=== PATIENT | female | born 1955 | race Caucasian/White ===

== ENCOUNTER → 2016-07-28 | Outpatient (CLI) | payer MEDICARE, BC, OTHER ==
[~2016-07-28] MED LIST: /MOXI40TA OR; ALBUTEROL INH INH; ALBUTEROL NEBULIZER INH; AMOX500C PO; ATOR1TAB21 PO; BIMA01SOL OU; CIPR25SS PO; LASI40TA OR; LISI-538 PO; METF1000 PO; MUCINEX PO; MYCOSTATIN SS; POTA75TA PO; PUFFER; SOLUMEDROL IV; SPIRIVA INH; TUSSINEX PO; TYLE1TAB5 PO; [UNRECOGNIZED DRUG - OTHER]; [UNRECOGNIZED DRUG - OTHER] PO
--- NOTE | 2016-07-28 08:00 | REP ---
Clinical: Preoperative assessment . Comparison: 02/20/2016 . Technique: PA and lateral. Findings: The mediastinum and cardiac silhouette are normal. The lung bynum are clear and without acute consolidation, effusion, or pneumothorax. The skeletal structures are intact and normal. Impression: 1. No acute cardiopulmonary process. Signed by Cosmo Dudley MD 07/28/2016 07:52 A
[2016-07-28 08:01] LABS: INR 0.82
[2016-07-28 08:09] LABS: MEAN CORPUSCULAR HEMOGLOBIN 29.6 pg (27.0-33.0); MEAN CORPUSCULAR VOLUME 89.7 fl (80.0-96.0); RED CELL DISTRIBUTION WIDTH 14.1 % (11.5-14.5)
[2016-07-28 08:30] LABS: ALBUMIN 3.6 GM/DL (3.2-5.2); ALBUMIN/GLOBULIN RATIO 1.24 (1.00-1.93); ALKALINE PHOSPHATASE 100 U/L (45-117); ALT/SGPT 38 U/L (12-78); ANION GAP 9 MEQ/L (8-16); AST/SGOT 17 U/L (15-37); BILIRUBIN,TOTAL 0.4 MG/DL (0.2-1.0); BLOOD UREA NITROGEN 13 MG/DL (7-18); CALCIUM LEVEL 8.5 MG/DL (8.8-10.2); CARBON DIOXIDE LEVEL 27 MEQ/L (21-32); CHLORIDE LEVEL 105 MEQ/L (98-107); CHOLESTEROL LEVEL 188 MG/DL (<200); CREATININE FOR GFR 0.76 MG/DL (0.55-1.02); GLOMERULAR FILTRATION RATE > 60.0 (>45); GLUCOSE, FASTING 191 MG/DL (80-110); POTASSIUM SERUM 4.4 MEQ/L (3.5-5.1); SODIUM LEVEL 141 MEQ/L (136-145); TOTAL PROTEIN 6.5 GM/DL (6.4-8.2); TRIGLYCERIDES LEVEL 310 MG/DL (<150)
--- NOTE | 2016-07-28 17:55 | ECGEPIP ---
Stationary ECG Study [facility] Test Date: 2016-07-28 Pat Name: JOSHUA BLANCAS Department: Room: - Gender: F Supervisor Print Line: LANG : 1955 Requested By: Madiha Yen Order Number: [id number] Reading MD: Romel Pathak Measurements Intervals [place] Rate: 83 P: 60 VT: 127 QRS: 25 QRSD: 85 T: 70 QT: 360 QTc: 424 Interpretive Statements SINUS RHYTHM LOW QRS VOLTAGE IN PRECORDIAL LEADS DELAYED R-WAVE PROGRESSION IN THE RIGHT PRECORDIAL LEADS LAST kg ON 02/20/2016 AT 8:07:04. NO SIGNIFICANT CHANGES BUT FASTER HEART RATE Electronically Signed On 07-28-2016 17:54:50 EDT by Romel Pathak
== END ==
LOC: M LAB 07:16
PROVIDERS: ATTEND Family Medicine
DX: Z01.812 Encounter for preprocedural laboratory examination (principal); I10 Essential (primary) hypertension

== ENCOUNTER → 2016-08-20 | Day surgery (SDC) | payer MEDICARE, BC, OTHER ==
[~2016-08-20] VITALS: Ht 149.9 cm; Wt 90.7 kg
[~2016-08-20] MED LIST changes: +BUPIVACAINE HCL 0.5% 30 ML VIAL As Ordered ONE; +GLYCOPYRROLATE INJ 0.2 MG/ML 2 ML VIAL As Ordered ONE; +HYDROcodone/APAP LIQUID 7.5-325MG 15ML UDC (LORTAB ELIXIR) PO PRN; +HYDROmorphone HCL 1 MG/ML SYRINGE (J1170) IV PRN; +HumaLOG INSULIN (NovoLOG) PER UNIT SC ONE; +IBUPROFEN 800 MG TAB PO PRN; +LR 1,000 ML IV SCH; +MEPERIDINE INJ 25 MG/ML VIAL (J2175) IV PRN; +METOCLOPRAMIDE INJ 10MG/2ML VIAL (J2765) IV PRN; +MIDAZOLAM INJ 2 MG/2 ML VIAL (J2250) As Ordered ONE; +MIDAZOLAM INJ 2 MG/2 ML VIAL (J2250) IV PRN; +NEOSTIGMINE 1MG/ML 5 ML SYRINGE (J2710) As Ordered ONE; +ONDANSETRON 4MG/2ML VIAL (J2405) As Ordered ONE; +ONDANSETRON 4MG/2ML VIAL (J2405) IV PRN; +PERCOCET 5MG/325MG TAB PO PRN; +PHENYLephrine HCL 500 MCG/5 ML (100MCG/ML) SYRINGE (J2370) As Ordered ONE; +PROPOFOL 500 MG/50 ML VIAL As Ordered ONE; +ROCURONIUM BROMIDE 50 MG/5 ML VIAL As Ordered ONE; +dexameTHASONE 4 MG/ML 1ML VIAL (J1100) As Ordered ONE; +ePHEDrine SULFATE 25 MG/5 ML(5MG/ML) SYRINGE As Ordered ONE; +fentaNYL 100 MCG/2 ML INJECTION (J3010) As Ordered ONE; +fentaNYL 100 MCG/2 ML INJECTION (J3010) IV PRN
[2016-08-20 14:20] VITALS: BP 142/63
--- NOTE | 2016-09-17 17:31 | RO ---
DATE OF PROCEDURE: 08/20/2016 PREOPERATIVE DIAGNOSIS: Asymmetric tonsillar hypertrophy. POSTOPERATIVE DIAGNOSIS: Asymmetric tonsillar hypertrophy. OPERATIVE PROCEDURE: Right tonsillectomy. SURGEON: Dr. Ronald Puentes ORCHARD HAND: ANESTHESIA: INDICATION: This is a 61-year-old that presents with a history of unilateral tonsillar enlargement associated with some chronic pain. She had been followed for several months and continued to have extensive fullness in the right side of her throat associated with an asymmetrically enlarged tonsil bed. Elected to establish a tissue diagnosis with biopsy and excision of the entire tonsil. PROCEDURE: Satisfactory general endotracheal anesthesia administered, the patient placed in Trendelenburg position. A Chiquita-Everardo gag inserted. the right tonsil was grasped with Allis clamp and retracted out of its muscular fossa. Using cutting cautery, incision made on the anterior pillar 3 mm from its edge and the capsule of the tonsil identified. Using a combination of cautery and blunt dissection, the tonsil was rolled medially out of its muscular fossa preserving the posterior pillar in its entirety. Once the tonsil was suspended only at the inferior pole, coagulation current was used to amputate the tissue. No significant bleeding was encountered in this dissection. The gag was released at 3 minutes. Reinspection showed no active bleeding. 0.50% Marcaine was injected into the surgical site. The patient was then awakened, extubated and sent to recovery in satisfactory condition. She will be discharged home on Percocet for pain and be seen back in the office in one week.
== END | disposition home or self-care (01) ==
LOC: M SDC 09:35
PROVIDERS: ATTEND Specialist
DX: J35.1 Hypertrophy of tonsils (principal); I10 Essential (primary) hypertension; E78.00 Pure hypercholesterolemia, unspecified; E11.9 Type 2 diabetes mellitus without complications; K64.9 Unspecified hemorrhoids; L40.9 Psoriasis, unspecified; J44.9 Chronic obstructive pulmonary disease, unspecified; R06.83 Snoring; G47.00 Insomnia, unspecified; Z79.899 Other long term (current) drug therapy; Z90.710 Acquired absence of both cervix and uterus; Z72.0 Tobacco use
CPT/HCPCS: 42826; 88305; 88329; J1100; J1170; J2250; J2370; J2405; J2710; J3010

== ENCOUNTER → 2017-03-26 | Outpatient (CLI) | payer MEDICARE, BC, OTHER ==
[~2017-03-26] MED LIST changes: -BUPIVACAINE HCL 0.5% 30 ML VIAL As Ordered ONE; -GLYCOPYRROLATE INJ 0.2 MG/ML 2 ML VIAL As Ordered ONE; -HYDROcodone/APAP LIQUID 7.5-325MG 15ML UDC (LORTAB ELIXIR) PO PRN; -HYDROmorphone HCL 1 MG/ML SYRINGE (J1170) IV PRN; -HumaLOG INSULIN (NovoLOG) PER UNIT SC ONE; -IBUPROFEN 800 MG TAB PO PRN; -LR 1,000 ML IV SCH; -MEPERIDINE INJ 25 MG/ML VIAL (J2175) IV PRN; -METF1000 PO; +METF10004 PO; -METOCLOPRAMIDE INJ 10MG/2ML VIAL (J2765) IV PRN; -MIDAZOLAM INJ 2 MG/2 ML VIAL (J2250) As Ordered ONE; -MIDAZOLAM INJ 2 MG/2 ML VIAL (J2250) IV PRN; -NEOSTIGMINE 1MG/ML 5 ML SYRINGE (J2710) As Ordered ONE; -ONDANSETRON 4MG/2ML VIAL (J2405) As Ordered ONE; -ONDANSETRON 4MG/2ML VIAL (J2405) IV PRN; -PERCOCET 5MG/325MG TAB PO PRN; -PHENYLephrine HCL 500 MCG/5 ML (100MCG/ML) SYRINGE (J2370) As Ordered ONE; -PROPOFOL 500 MG/50 ML VIAL As Ordered ONE; -ROCURONIUM BROMIDE 50 MG/5 ML VIAL As Ordered ONE; -dexameTHASONE 4 MG/ML 1ML VIAL (J1100) As Ordered ONE; -ePHEDrine SULFATE 25 MG/5 ML(5MG/ML) SYRINGE As Ordered ONE; -fentaNYL 100 MCG/2 ML INJECTION (J3010) As Ordered ONE; -fentaNYL 100 MCG/2 ML INJECTION (J3010) IV PRN
[2017-03-26 07:43] LABS: MEAN CORPUSCULAR HEMOGLOBIN 27.1 pg (27.0-33.0); MEAN CORPUSCULAR HGB CONC 31.7 g/dl (32.0-36.5); MEAN CORPUSCULAR VOLUME 85.5 fl (80.0-96.0); PLATELET COUNT, AUTOMATED 347 10^3/uL (150-450); WHITE BLOOD COUNT 9.8 10^3/uL (4.0-10.0)
[2017-03-26 08:09] LABS: ALBUMIN 3.1 GM/DL (3.2-5.2); ALBUMIN/GLOBULIN RATIO 0.91 (1.00-1.93); ALKALINE PHOSPHATASE 96 U/L (45-117); ALT/SGPT 20 U/L (12-78); ANION GAP 10 MEQ/L (8-16); AST/SGOT 14 U/L (7-37); BILIRUBIN,TOTAL 0.4 MG/DL (0.2-1.0); BLOOD UREA NITROGEN 12 MG/DL (7-18); CALCIUM LEVEL 9.2 MG/DL (8.8-10.2); CARBON DIOXIDE LEVEL 25 MEQ/L (21-32); CHLORIDE LEVEL 103 MEQ/L (98-107); CHOLESTEROL LEVEL 183 MG/DL (<200); CREATININE FOR GFR 0.82 MG/DL (0.55-1.02); GLOMERULAR FILTRATION RATE > 60.0 (>45); GLUCOSE, FASTING 233 MG/DL (80-110); PERCENT SATURATION 14.1 % (13.2-45.0); POTASSIUM SERUM 4.5 MEQ/L (3.5-5.1); SODIUM LEVEL 138 MEQ/L (136-145); THYROXINE (T4) 9.2 UG/DL (4.5-12.0); TOTAL IRON BINDING CAPACITY 270 UG/DL (250-450); TOTAL PROTEIN 6.5 GM/DL (6.4-8.2); TRIGLYCERIDES LEVEL 183 MG/DL (<150)
[2017-03-26 10:28] LABS: VITAMIN B12 LEVEL 344 PG/ML (247-911)
== END ==
LOC: M LAB 06:46
PROVIDERS: ATTEND Family Medicine
DX: D64.9 Anemia, unspecified (principal); R53.83 Other fatigue; E11.9 Type 2 diabetes mellitus without complications; E03.9 Hypothyroidism, unspecified

== ENCOUNTER → 2018-01-21 | Outpatient (REF) | payer MEDICARE, OTHER ==
[2018-01-21 15:18] LABS: IMMUNOGLOBULIN G 732 MG/DL (681-1648); IMMUNOGLOBULIN M 32.6 MG/DL (40-230)
[2018-01-24 08:45] LABS: D001-IgE D pteronyssinus <0.10 kU/L (Class 0); E001-IgE Cat Epith/Dander < 0.10 kU/L (Class 0); E005-IgE Dog Dander 0.67 kU/L (Class II); G002-IgE Bermuda Grass < 0.10 kU/L (Class 0); G008-IgE Kentucky Bluegrass < 0.10 kU/L (Class 0); M001-IgE Penicillium chrysogen < 0.10 kU/L (Class 0); M002 IgE Cladosporium herbaru < 0.10 kU/L (Class 0); M003 IgE Aspergillus fumigatu < 0.10 kU/L (Class 0); M006-IgE Alternaria alternata < 0.10 kU/L (Class 0); T001-IgE Maple/Box Elder < 0.10 kU/L (Class 0); T003-IgE Common Silver Birch < 0.10 kU/L (Class 0); T006-IgE Cedar, Mountain < 0.10 kU/L (Class 0); T007-IgE Oak, White < 0.10 kU/L (Class 0); T008-IgE Elm, American < 0.10 kU/L (Class 0); T015-IgE Ash, White < 0.10 kU/L (Class 0); T041-IgE Hickory, White < 0.10 kU/L (Class 0); T070-IgE White Mulberry < 0.10 kU/L (Class 0); W001-IgE Ragweed, Short < 0.10 kU/L (Class 0); W009-IgE Plantain, English < 0.10 kU/L (Class 0); W014-IgE Pigweed, Rough < 0.10 kU/L (Class 0); W018-IgE Sheep Sorrel < 0.10 kU/L (Class 0)
== END ==
LOC: M LAB REF 14:13
DX: J44.9 Chronic obstructive pulmonary disease, unspecified (principal); J30.9 Allergic rhinitis, unspecified
CPT/HCPCS: 82785

== ENCOUNTER → 2018-01-22 | Outpatient (REF) | payer MEDICARE, OTHER | LOC: M LAB REF 13:09 | DX: J44.9 Chronic obstructive pulmonary disease, unspecified (principal) | CPT/HCPCS: 87205 ==

== ENCOUNTER → 2018-06-29 | Outpatient (CLI) | payer MEDICARE, OTHER ==
[2018-06-29 07:47] LABS: HEMATOCRIT 37.8 % (36.0-47.0); HEMOGLOBIN 11.8 g/dl (12.0-15.5); MEAN CORPUSCULAR HEMOGLOBIN 28.2 pg (27.0-33.0); MEAN CORPUSCULAR HGB CONC 31.2 g/dl (32.0-36.5); MEAN CORPUSCULAR VOLUME 90.2 fl (80.0-96.0); PLATELET COUNT, AUTOMATED 319 10^3/uL (150-450); RED BLOOD COUNT 4.19 10^6/uL (4.00-5.40); WHITE BLOOD COUNT 9.6 10^3/uL (4.0-10.0)
[2018-06-29 08:10] LABS: ALBUMIN 3.6 GM/DL (3.2-5.2); ALT/SGPT 19 U/L (12-78); BILIRUBIN,TOTAL 0.3 MG/DL (0.2-1.0); BLOOD UREA NITROGEN 10 MG/DL (7-18); CALCIUM LEVEL 9.4 MG/DL (8.8-10.2); CARBON DIOXIDE LEVEL 28 MEQ/L (21-32); CHLORIDE LEVEL 105 MEQ/L (98-107); CHOLESTEROL LEVEL 213 MG/DL (<200); CREATININE FOR GFR 0.72 MG/DL (0.55-1.30); GLOMERULAR FILTRATION RATE > 60.0 (>45); GLUCOSE, FASTING 132 MG/DL (70-100); HDL CHOLESTEROL 59 MG/DL (>40); LDL CHOLESTEROL 120 MG/DL (<100); NON-HDL-C 154 MG/DL; POTASSIUM SERUM 4.8 MEQ/L (3.5-5.1); SODIUM LEVEL 139 MEQ/L (136-145); TOTAL PROTEIN 6.6 GM/DL (6.4-8.2); TRIGLYCERIDES LEVEL 171 MG/DL (<150)
[2018-06-29 09:19] LABS: TOTAL 25(OH) VITAMIN D 34.4 NG/ML (30.0-100.0)
== END ==
LOC: M LAB 06:52
PROVIDERS: ATTEND Family Medicine
DX: I10 Essential (primary) hypertension (principal); E11.9 Type 2 diabetes mellitus without complications

== ENCOUNTER → 2018-11-30 | Outpatient (CLI) | payer MEDICARE, BC, OTHER ==
[~2018-11-30] MED LIST changes: -/MOXI40TA OR; +AVEL1TAB2 OR
[2018-11-30 07:23] LABS: HEMOGLOBIN A1c 7.4 %
== END ==
LOC: M LAB 06:09
PROVIDERS: ATTEND Family Medicine
DX: E11.9 Type 2 diabetes mellitus without complications (principal)

== ENCOUNTER → 2019-06-16 | Outpatient (CLI) | payer MEDICARE, BC, OTHER ==
[2019-06-16 06:45] LABS: HEMATOCRIT 40.2 % (36.0-47.0); HEMOGLOBIN 12.2 g/dl (12.0-15.5); MEAN CORPUSCULAR HEMOGLOBIN 27.5 pg (27.0-33.0); MEAN CORPUSCULAR HGB CONC 30.3 g/dl (32.0-36.5); MEAN CORPUSCULAR VOLUME 90.5 fl (80.0-96.0); PLATELET COUNT, AUTOMATED 302 10^3/uL (150-450); RED BLOOD COUNT 4.44 10^6/uL (4.00-5.40)
[2019-06-16 07:09] LABS: HEMOGLOBIN A1c 8.5 %
[2019-06-16 07:25] LABS: ALBUMIN 3.6 GM/DL (3.2-5.2); ALT/SGPT 24 U/L (12-78); BILIRUBIN,TOTAL 0.3 MG/DL (0.2-1.0); BLOOD UREA NITROGEN 15 MG/DL (7-18); CALCIUM LEVEL 9.3 MG/DL (8.8-10.2); CARBON DIOXIDE LEVEL 25 MEQ/L (21-32); CHLORIDE LEVEL 107 MEQ/L (98-107); CHOLESTEROL LEVEL 214 MG/DL (<200); CHOLESTEROL RISK RATIO 3.451 (<5); CREATININE FOR GFR 0.85 MG/DL (0.55-1.30); GLOMERULAR FILTRATION RATE > 60.0 (>45); GLUCOSE, FASTING 193 MG/DL (70-100); HDL CHOLESTEROL 62 MG/DL (>40); LDL CHOLESTEROL 103 MG/DL (<100); NON-HDL-C 152 MG/DL; POTASSIUM SERUM 4.9 MEQ/L (3.5-5.1); SODIUM LEVEL 140 MEQ/L (136-145); TOTAL PROTEIN 6.7 GM/DL (6.4-8.2); TRIGLYCERIDES LEVEL 244 MG/DL (<150)
[2019-06-16 08:06] LABS: TOTAL 25(OH) VITAMIN D 35.2 NG/ML (30.0-100.0)
== END ==
LOC: M LAB 06:04
PROVIDERS: ATTEND Family Medicine
DX: I10 Essential (primary) hypertension (principal); E11.9 Type 2 diabetes mellitus without complications; Z79.899 Other long term (current) drug therapy

== ENCOUNTER → 2019-11-18 | Outpatient (CLI) | payer MEDICARE, BC, OTHER ==
[~2019-11-18] MED LIST changes: +ACET25TA12 PO; +FURO40TA2 PO; +JANU50TA25 PO; +K-TA10TA PO
[2019-11-18 07:28] LABS: HEMOGLOBIN 12.3 g/dl (12.0-15.5); MEAN CORPUSCULAR HEMOGLOBIN 26.9 pg (27.0-33.0); MEAN CORPUSCULAR HGB CONC 30.8 g/dl (32.0-36.5); MEAN CORPUSCULAR VOLUME 87.3 fl (80.0-96.0); PLATELET COUNT, AUTOMATED 311 10^3/uL (150-450); RED BLOOD COUNT 4.58 10^6/uL (4.00-5.40); WHITE BLOOD COUNT 10.6 10^3/uL (4.0-10.0)
[2019-11-18 07:37] LABS: INR 0.89; PROTHROMBIN TIME 11.8 SECONDS (11.8-14.0)
[2019-11-18 07:41] LABS: HEMOGLOBIN A1c 8.6 %
[2019-11-18 08:01] LABS: ALBUMIN 3.7 GM/DL (3.2-5.2); ALT/SGPT 20 U/L (12-78); BILIRUBIN,TOTAL 0.4 MG/DL (0.2-1.0); BLOOD UREA NITROGEN 11 MG/DL (7-18); CARBON DIOXIDE LEVEL 24 MEQ/L (21-32); CHLORIDE LEVEL 107 MEQ/L (98-107); CHOLESTEROL LEVEL 241 MG/DL (<200); CHOLESTEROL RISK RATIO 4.228 (<5); CREATININE FOR GFR 0.87 MG/DL (0.55-1.30); GLOMERULAR FILTRATION RATE > 60.0 (>45); GLUCOSE, FASTING 191 MG/DL (70-100); HDL CHOLESTEROL 57 MG/DL (>40); LDL CHOLESTEROL 131 MG/DL (<100); NON-HDL-C 184 MG/DL; POTASSIUM SERUM 4.5 MEQ/L (3.5-5.1); SODIUM LEVEL 140 MEQ/L (136-145); TOTAL PROTEIN 7.1 GM/DL (6.4-8.2); TRIGLYCERIDES LEVEL 266 MG/DL (<150)
[2019-11-18 08:50] LABS: TOTAL 25(OH) VITAMIN D 38.4 NG/ML (30.0-100.0)
== END ==
LOC: M LAB 06:15
PROVIDERS: ATTEND Family Medicine
DX: I10 Essential (primary) hypertension (principal); Z79.01 Long term (current) use of anticoagulants

== ENCOUNTER → 2019-11-21 | Outpatient (CLI) | payer MEDICARE, BC, OTHER | LOC: M LABSMTC 10:36 | PROVIDERS: ATTEND Anesthesiology | DX: Z01.818 Encounter for other preprocedural examination (principal); Z11.59 Encounter for screening for other viral diseases | CPT/HCPCS: C9803; U0003 ==

== ENCOUNTER 2019-11-24 06:18 | Day surgery (SDC) | payer MEDICARE, BC, OTHER ==
[~2019-11-24] VITALS: Ht 149.9 cm; Wt 91.2 kg
[2019-11-24] MEDS ORDERED: POVIDONE-IODINE 5% OPHTH PREP SOL 30ML As Ordered ONE (06:49)
[2019-11-24] MEDS ORDERED: CEFUROXIME 1MG/0.1ML INTRACAMERAL INJ As Ordered ONE (06:49)
[2019-11-24] MEDS ORDERED: BSS IRR 500ML/OMIDRIA 4ML IRR BAG (OR ONLY) (J1097 PER ML) As Ordered ONE (06:49)
[2019-11-24] MEDS ORDERED: DUOVISC (0.50ML VISCOAT/0.55ML PROVISC) OPHTH KIT As Ordered ONE (06:49)
[2019-11-24] MEDS ORDERED: OFLOXACIN 0.3 % (OCUFLOX) OPTH SOL 5ML OD ONE (07:00)
[2019-11-24] MEDS ORDERED: PROPARACAINE 0.5% OPHTH SOL 15ML OD ONE (07:00)
[2019-11-24] MEDS ORDERED: PHENYLEPHRINE 2.5% OPHTH SOL 2ML OD ONE (07:00)
[2019-11-24] MEDS ORDERED: TROPICAMIDE 1% OPHTH SOLN 2ML OD ONE (07:00)
[2019-11-24] MEDS ORDERED: fentaNYL 100 MCG/2 ML INJECTION (J3010) As Ordered ONE (07:36)
[2019-11-24] MEDS ORDERED: HumaLOG INSULIN (NovoLOG) PER UNIT As Ordered ONE (07:36)
[2019-11-24] MEDS ORDERED: MIDAZOLAM INJ 2MG/2ML VIAL (J2250 PER 1MG) As Ordered ONE (07:37)
[2019-11-24] MEDS ORDERED: HumaLOG INSULIN (NovoLOG) PER UNIT SC ONE (07:45)
[2019-11-24 08:50] VITALS: BP 131/60
== END 2019-11-24 09:12 | disposition home or self-care (01) ==
LOC: M SDC 06:18
PROVIDERS: ATTEND Ophthalmology
DX: H25.11 Age-related nuclear cataract, right eye (principal); H40.1110 Primary open-angle glaucoma, right eye, stage unspecified; I10 Essential (primary) hypertension; J44.9 Chronic obstructive pulmonary disease, unspecified; E11.9 Type 2 diabetes mellitus without complications; F41.9 Anxiety disorder, unspecified; L40.9 Psoriasis, unspecified; K21.9 Gastro-esophageal reflux disease without esophagitis; Z79.84 Long term (current) use of oral hypoglycemic drugs; Z79.899 Other long term (current) drug therapy; Z88.2 Allergy status to sulfonamides
CPT/HCPCS: 65820; 66174; 66984; 92015; J1097; J2250; J3010; V2632

== ENCOUNTER → 2020-07-20 | Outpatient (CLI) | payer MEDICARE, BC, OTHER ==
[~2020-07-20] MED LIST changes: -LISI-538 PO; +LISI20TA33 PO
[2020-07-20 06:57] LABS: HEMATOCRIT 40.3 % (36.0-47.0); HEMOGLOBIN 12.3 g/dl (12.0-15.5); MEAN CORPUSCULAR HGB CONC 30.5 g/dl (32.0-36.5); MEAN CORPUSCULAR VOLUME 88.4 fl (80.0-96.0); PLATELET COUNT, AUTOMATED 286 10^3/uL (150-450); RED BLOOD COUNT 4.56 10^6/uL (4.00-5.40); WHITE BLOOD COUNT 10.5 10^3/uL (4.0-10.0)
[2020-07-20 07:12] LABS: HEMOGLOBIN A1c 7.8 %
[2020-07-20 07:30] LABS: ALBUMIN 3.7 GM/DL (3.2-5.2); ALT/SGPT 21 U/L (12-78); BILIRUBIN,TOTAL 0.3 MG/DL (0.2-1.0); BLOOD UREA NITROGEN 14 MG/DL (7-18); CALCIUM LEVEL 9.2 MG/DL (8.8-10.2); CARBON DIOXIDE LEVEL 28 MEQ/L (21-32); CHLORIDE LEVEL 105 MEQ/L (98-107); CHOLESTEROL LEVEL 208 MG/DL (<200); CHOLESTEROL RISK RATIO 3.301 (<5); CREATININE FOR GFR 0.86 MG/DL (0.55-1.30); GLOMERULAR FILTRATION RATE > 60.0 (>45); GLUCOSE, FASTING 197 MG/DL (70-100); HDL CHOLESTEROL 63 MG/DL (>40); LDL CHOLESTEROL 101 MG/DL (<100); NON-HDL-C 145 MG/DL; POTASSIUM SERUM 4.7 MEQ/L (3.5-5.1); SODIUM LEVEL 140 MEQ/L (136-145); TRIGLYCERIDES LEVEL 220 MG/DL (<150)
[2020-07-20 08:42] LABS: TOTAL 25(OH) VITAMIN D 41.4 NG/ML (30.0-100.0)
== END ==
LOC: M LAB 06:25
PROVIDERS: ATTEND Family Medicine
DX: E03.9 Hypothyroidism, unspecified (principal); R53.83 Other fatigue; I10 Essential (primary) hypertension; Z79.899 Other long term (current) drug therapy

== ENCOUNTER 2020-10-13 04:53 | Emergency (ER) | payer MEDICARE, BC, OTHER ==
[~2020-10-13] VITALS: Ht 149.9 cm; Wt 92.7 kg
[2020-10-13 05:53] LABS: BASO # 0.1 10^3/uL (0.0-0.2); BASO % 0.5 % (0.0-1.0); EOS # 0.3 10^3/uL (0.0-0.5); EOS % 2.1 % (0.0-3.0); HEMATOCRIT 35.4 % (36.0-47.0); HEMOGLOBIN 11.1 g/dl (12.0-15.5); LYMPH # 1.3 10^3/uL (1.5-5.0); MEAN CORPUSCULAR HEMOGLOBIN 27.3 pg (27.0-33.0); MEAN CORPUSCULAR HGB CONC 31.4 g/dl (32.0-36.5); MONO # 0.6 10^3/uL (0.0-0.8); MONO % 5.4 % (2.0-8.0); NEUTROPHILS # 9.6 10^3/uL (1.5-8.5); NEUTROPHILS % 80.7 % (36.0-66.0); PLATELET COUNT, AUTOMATED 308 10^3/uL (150-450); RED BLOOD COUNT 4.07 10^6/uL (4.00-5.40); WHITE BLOOD COUNT 11.9 10^3/uL (4.0-10.0)
[2020-10-13 06:27] LABS: ALBUMIN 3.3 GM/DL (3.2-5.2); ALT/SGPT 12 U/L (12-78); BILIRUBIN,DIRECT 0.1 MG/DL (0.0-0.2); BILIRUBIN,TOTAL 0.4 MG/DL (0.2-1.0); BLOOD UREA NITROGEN 9 MG/DL (7-18); CALCIUM LEVEL 8.9 MG/DL (8.8-10.2); CARBON DIOXIDE LEVEL 24 MEQ/L (21-32); CHLORIDE LEVEL 105 MEQ/L (98-107); CREATININE FOR GFR 0.62 MG/DL (0.55-1.30); GLOMERULAR FILTRATION RATE > 60.0 (>45); GLUCOSE, FASTING 227 MG/DL (70-100); LIPASE 256 U/L (73-393); POTASSIUM SERUM 4.4 MEQ/L (3.5-5.1); SODIUM LEVEL 139 MEQ/L (136-145); TOTAL PROTEIN 6.5 GM/DL (6.4-8.2)
[2020-10-13] MEDS ORDERED: NS 500 ML IV ONE (06:40)
[2020-10-13] MEDS ORDERED: ISOVUE-370 76% 100ML VIAL As Ordered ONE (06:56)
[2020-10-13 07:01] LABS: CK-MB VALUE MASS 1.3 NG/ML (<3.6); CPK CREATINE PHOSPHOKINASE 58 U/L (26-192); MB/CK RELATIVE INDEX 2.24 (< OR =4); TROPONIN I 0.03 NG/ML (< 0.10)
--- NOTE | 2020-10-13 07:27 | REP ---
INDICATION: Abdominal Pain COMPARISON: 07/28/2016 TECHNIQUE: PA and lateral. FINDINGS: The mediastinum and cardiac silhouette are normal. The lung bynum are clear and without acute consolidation, effusion, or pneumothorax. The skeletal structures are intact and normal. IMPRESSION: No acute cardiopulmonary process. <Electronically signed by Cosmo Dudley > 10/13/20 0723
--- NOTE | 2020-10-13 08:09 | REPVR ---
PROCEDURE INFORMATION: Exam: CT Abdomen And Pelvis With Contrast Exam date and time: 10/13/2020 7:36 AM Age: 65 years old Clinical indication: Abdominal pain; Localized; Left lower quadrant (llq); Additional info: Llq pain, R/O diverticulitis vs stone TECHNIQUE: Imaging protocol: Computed tomography of the abdomen and pelvis with contrast. Radiation optimization: All CT scans at this facility use at least one of these dose optimization techniques: automated exposure control; mA and/or kV adjustment per patient size (includes targeted exams where dose is matched to clinical indication); or iterative reconstruction. Contrast material: ISOVUE 370; Contrast volume: 100 ml; Contrast route: INTRAVENOUS (IV); COMPARISON: No relevant prior studies available. FINDINGS: Lungs: There is minimal atelectatic changes in the right middle lobe and lingula. Liver: The liver is hypoattenuated. Gallbladder and bile ducts: Normal. No calcified stones. No ductal dilation. Pancreas: Normal. No ductal dilation. Spleen: Normal. No splenomegaly. Adrenal glands: There is 3.1 x 1.6 cm left adrenal gland nodule best seen on coronal image 60. The right adrenal gland is unremarkable. Kidneys and ureters: Normal. No hydronephrosis. Stomach and bowel: There is extensive descending and sigmoid colon diverticulosis. There is distal descending colonic wall thickening with surrounding edema. Appendix: No evidence of appendicitis. Intraperitoneal space: Unremarkable. No free air. No significant fluid collection. Vasculature: There is severe aortic and iliac mural calcifications with focal ulcerated plaque anteriorly in the mid infrarenal abdominal aorta. Lymph nodes: Unremarkable. No enlarged lymph nodes. Urinary bladder: Unremarkable as visualized. Reproductive: The patient is status post hysterectomy. There is no adnexal mass. Bones/joints: Unremarkable. No acute fracture. Soft tissues: Unremarkable. IMPRESSION: 1. Extensive descending and sigmoid colon diverticulosis with distal descending diverticulitis but with no free peritoneal air or abscess formation at this time. 2. Fatty infiltration of the liver. 3. 3.1 x 1.6 cm left adrenal gland indeterminate nodule.Non-emergent adrenal CT is recommended. (Reference: Lazarus) 4. Severe aortic and iliofemoral mural calcifications and atherosclerotic disease resulting in 50-70% narrowing of the infrarenal abdominal aorta coupled with an anterior mid abdominal aorta focal ulcerated plaque. REFERENCES: Lazarus REYES, et al. Management of Incidental Adrenal Masses: A White Paper of the ACR Incidental Findings Committee. J Am Stephen Radiol. 2017;14(8):2822-0267. Electronically signed by: Juan J Barahona On 10/13/2020 08:08:45 AM
--- NOTE | 2020-10-13 08:56 | ECGEPIP ---
[facility] - ED Test Date: 2020-10-13 Pat Name: JOSHUA BLANCAS Department: Room: - Gender: Female Sociology Faculty Member: catarina : 1955 Requested By: MICK Clark PA-C Order Number: [id number] Reading MD: Olena Sandoval Measurements Intervals [place] Rate: 84 P: 48 [place]: 138 QRS: 15 QRSD: 68 T: 75 QT: 346 QTc: 408 Interpretive Statements Normal sinus rhythm with sinus arrhythmia Possible Anterior infarct , age undetermined NSTTW abnormalities similar 07/28/16 Electronically Signed on 10-13-2020 8:55:59 EDT by Olena Sandoval
[2020-10-13] MEDS ORDERED: AUGM875T28 PO (08:57)
[2020-10-13] MEDS ORDERED: HYDR-3713 PO (08:57)
[2020-10-13 09:16] VITALS: BP 145/78
--- NOTE | 2020-10-13 09:42 | ED PDOC ---
Post-Departure Follow-Up radiology report faxed to Olena Yarbrough MD October 13, 2020 09:42
[2020-10-13 10:48] LABS: FERRITIN 24 NG/ML (8-252); IRON (FE) 28 UG/DL (50-170); PERCENT SATURATION 8.6 % (13.2-45.0); TOTAL IRON BINDING CAPACITY 327 UG/DL (250-450)
[2020-10-13] MEDS ORDERED: FERR240T PO (11:43)
[2020-10-16 10:41] LABS: VITAMIN B12 LEVEL 1074 PG/ML
[2020-10-16 10:42] LABS: FOLATE 14.3 NG/ML
== END 2020-10-13 09:18 | disposition home or self-care (01) ==
LOC: M ED 04:53
DX: K57.32 Diverticulitis of large intestine without perforation or abscess without bleeding (principal); R11.0 Nausea; K76.0 Fatty (change of) liver, not elsewhere classified; E27.9 Disorder of adrenal gland, unspecified; I25.10 Atherosclerotic heart disease of native coronary artery without angina pectoris; I70.0 Atherosclerosis of aorta; R01.1 Cardiac murmur, unspecified; E11.65 Type 2 diabetes mellitus with hyperglycemia; I10 Essential (primary) hypertension; J44.9 Chronic obstructive pulmonary disease, unspecified; K58.8 Other irritable bowel syndrome; F41.9 Anxiety disorder, unspecified; F17.290 Nicotine dependence, other tobacco product, uncomplicated; Z88.2 Allergy status to sulfonamides; Z79.899 Other long term (current) drug therapy
CPT/HCPCS: 71046; 74177; 80048; 80076; 81001; 82550; 82553; 82607; 82728; 82746; 83550; 83690; 84484; 85025; 87086; 93005; 96360; 99284; Q9967

== ENCOUNTER 2021-02-09 06:32 | Inpatient (IN) | payer MEDICARE, BC, OTHER ==
[2021-02-09] VITALS (28 sets, daily range): BP systolic 82–118; BP diastolic 48–85
[~2021-02-09] VITALS: Ht 152.4 cm; Wt 98.0 kg
[~2021-02-09 06:32] MED LIST changes: +AUGM875T28 PO; +FERR240T PO; +HYDR-3713 PO
[2021-02-09] MEDS ORDERED: methylPREDNISolone 125MG 2ML VIAL IV ONE (06:40)
[2021-02-09 06:56] LABS: BASO # 0.1 10^3/uL (0.0-0.2); BASO % 0.6 % (0.0-1.0); EOS # 0.8 10^3/uL (0.0-0.5); EOS % 3.4 % (0.0-3.0); HEMATOCRIT 45.9 % (36.0-47.0); HEMOGLOBIN 13.8 g/dl (12.0-15.5); LYMPH # 7.4 10^3/uL (1.5-5.0); LYMPH % 32.3 % (24.0-44.0); MEAN CORPUSCULAR HEMOGLOBIN 26.6 pg (27.0-33.0); MEAN CORPUSCULAR HGB CONC 30.1 g/dl (32.0-36.5); MEAN CORPUSCULAR VOLUME 88.6 fl (80.0-96.0); MONO # 1.5 10^3/uL (0.0-0.8); MONO % 6.7 % (2.0-8.0); NEUTROPHILS # 12.9 10^3/uL (1.5-8.5); NEUTROPHILS % 56.1 % (36.0-66.0); PLATELET COUNT, AUTOMATED 365 10^3/uL (150-450); RED BLOOD COUNT 5.18 10^6/uL (4.00-5.40)
[2021-02-09] MEDS ORDERED: ETOMIDATE INJ 20MG/10ML VIAL IV ONE (07:05)
[2021-02-09] MEDS ORDERED: ROCURONIUM BROMIDE 50 MG/5 ML VIAL IV ONE (07:05)
[2021-02-09] MEDS: IPRATROPIUM 0.5MG/ALBUTEROL 2.5MG INH SOL UD 3ML (DUONEB) NEB PRN ×2 (07:06→07:07)
[2021-02-09] MEDS ORDERED: PIPERACILLIN/TAZOBACTAM SOD 3.375 GM in D5W MINI-BAG PLUS 50 ML IV ONE (07:30)
[2021-02-09] MEDS ORDERED: FUROSEMIDE 100MG/10ML VIAL (J1940) IV ONE (07:30)
[2021-02-09 07:44] LABS: ALT/SGPT 25 U/L (12-78); BILIRUBIN,DIRECT < 0.1 MG/DL (0.0-0.2); BILIRUBIN,TOTAL 0.4 MG/DL (0.2-1.0); BLOOD UREA NITROGEN 17 MG/DL (7-18); CALCIUM LEVEL 9.1 MG/DL (8.8-10.2); CARBON DIOXIDE LEVEL 24 MEQ/L (21-32); CHLORIDE LEVEL 105 MEQ/L (98-107); CK-MB VALUE MASS 2.8 NG/ML (<3.6); CPK CREATINE PHOSPHOKINASE 80 U/L (26-192); CREATININE FOR GFR 1.03 MG/DL (0.55-1.30); GLOMERULAR FILTRATION RATE 57.4 (>45); GLUCOSE, FASTING 302 MG/DL (70-100); NT-PRO BNP 993 PG/ML (<125); POTASSIUM SERUM 4.5 MEQ/L (3.5-5.1); SODIUM LEVEL 141 MEQ/L (136-145); TOTAL PROTEIN 7.6 GM/DL (6.4-8.2); TROPONIN I 0.05 NG/ML (< 0.10)
[2021-02-09] MEDS: propofoL 1,000 MG in IV 1 EA IV SCH ×3 (07:47→15:03)
[2021-02-09] MEDS ORDERED: med rec comment (07:52)
[2021-02-09] MEDS ORDERED: HOME MED LIST COMPLETE! XX SCH (07:55)
--- NOTE | 2021-02-09 08:28 | REP ---
INDICATION: tube advanced 2cm. COMPARISON: Portable chest, 02/09/2021 7:18 a.m. TECHNIQUE: Supine AP portable chest image was obtained. FINDINGS: The endotracheal tube tip is now approximately 2 cm above the cem. The nasogastric tube appears in good position with both the side port and the tip in the stomach area. There is diffuse interstitial lung disease with some superimposed alveolar lung disease, consistent with pulmonary edema or diffuse pneumonia. The heart size is not significantly changed. There are no significant pleural effusions. IMPRESSION: 1. Diffuse interstitial lung disease with some superimposed alveolar lung disease consistent with noncardiogenic pulmonary edema versus diffuse pneumonia. 2. The endotracheal tube and nasogastric tubes appear in good position. <Electronically signed by Asad Santos > 02/09/21 2767
--- NOTE | 2021-02-09 08:41 | REP ---
INDICATION: DYSPNEA/COUGH. COMPARISON: PA and lateral chest, [id number]. TECHNIQUE: Supine AP portable chest image was obtained. FINDINGS: The endotracheal tube tip is approximately 4 cm above the cem. The nasogastric tube appears in good position with both the side port and tube tip in the area of the stomach. There is diffuse interstitial lung disease consistent with pulmonary edema or diffuse pneumonia. The heart size does not appear enlarged. There are no significant pleural effusions. IMPRESSION: 1. Diffuse interstitial lung disease consistent with cardiogenic versus noncardiogenic pulmonary edema or diffuse pneumonia. 2. Endotracheal tube tip is 4 cm above the cem. 3. Nasogastric tube appears in good position. <Electronically signed by Asad Santos > 02/09/21 1671
[2021-02-09] MEDS ORDERED: MIDAZOLAM INJ 2MG/2ML VIAL (J2250 PER 1MG) IV STA (08:48)
[2021-02-09] MEDS ORDERED: REFRIGERATOR IV KEYS XX PRN (08:50)
[2021-02-09] MEDS ORDERED: MIDAZOLAM HCL 100 MG in D5W 80 ML IV SCH (08:50)
[2021-02-09] MEDS: MIDAZOLAM HCL 100 MG in D5W 80 ML IV SCH ×2 (09:10→21:15)
--- NOTE | 2021-02-09 09:21 | ECGEPIP ---
[facility] - ED Test Date: 2021-02-09 Pat Name: JOSHUA BLANCAS Department: Room: - Gender: Female Infrastructure Administrator: : 1955 Requested By: VIOLA Parra Order Number: [id number] Reading MD: Eusebio Sorensen Measurements Intervals [place] Rate: 150 P: 64 AR: 122 QRS: 64 QRSD: 82 T: 72 QT: 266 QTc: 420 Interpretive Statements Sinus tachycardia POOR R WAVE PROGRESSION Nonspecific ST and T wave abnormality RATE CHANGE COMPARED TO 10/13/20 Electronically Signed on 02-09-2021 9:21:35 EDT by Eusebio Sorensen
[2021-02-09 09:25] LABS: ABG BASE EXCESS -7.2 (-2.0-2.0); ABG HCO3 19.8 MEQ/L (22.0-26.0); ABG O2 SATURATION 95.7 % (95.0-99.0); ABG PARTIAL PRESSURE CO2 45.5 mmHg (35.0-45.0); ABG PARTIAL PRESSURE O2 89.2 mmHg (75.0-100.0); ABG STANDARD HCO3 18.6 MEQ/L (22.0-26.0); ABG TOTAL CO2 21.2 MEQ/L (23.0-31.0); ABG pH (ARTERIAL) 7.256 UNITS (7.350-7.450)
[2021-02-09] MEDS: MIDAZOLAM INJ 2MG/2ML VIAL (J2250 PER 1MG) IV PRN ×5 (09:32→19:41)
--- NOTE | 2021-02-09 09:45 | HPE ---
HISTORY AND PHYSICAL/CRITICAL CARE ADMIT NOTE DATE OF ADMISSION: 02/09/2021 START TIME: 844 STOP TIME: 924 HISTORY OF PRESENT ILLNESS: I was called to the ER to attend Tamiko Poole. The patient has been examined, chart reviewed, and I spoke at length with the ER regarding her status. The patient is unable to give any history. Minimal information is available. In essence, this is a 65-year-old female with a given history of underlying obstructive lung disease, congestive heart failure, and wsh-xmoccpy-guddyleug diabetes mellitus with hypertension. She called EMS due to respiratory distress. On arrival to the ER, she was in extremis. Immediately placed on noninvasive support and was intolerant of it. She was therefore intubated. She was markedly hypoxic on arrival. The first arterial blood gas showed a pH of 7.147, pCO2 of 68.7, and pO2 of 405. I believe this is after intubation. Her first lactate was 4.8. Chest x-ray shows ET tube in good position. It shows cardiomegaly and marked increase in pulmonary vasculature. She was initially treated with propofol, but was somewhat hypotensive with that and changed to Versed for sedation. ALLERGIES: SULFA. HOME MEDICATIONS: 1. Lisinopril. 2. Lumigan eye drops. 3. Janumet. PAST MEDICAL HISTORY: As outlined above. REVIEW OF SYSTEMS: Unobtainable. FAMILY HISTORY: Unobtainable. SOCIAL HISTORY: Unobtainable. PHYSICAL EXAMINATION: GENERAL: She is sedate, intubated, and mechanically ventilated. VITAL SIGNS: Heart rate 110 and regular. Blood pressure currently 88 systolic. Propofol drip was just shut off. HEENT: Shows her pupils react. Sclerae clear. Trachea is in the midline. Oral endotracheal and orogastric tubes are in place. CHEST: Shows diminished, but symmetric expansion. There is a mid to late inspiratory squeak in the anterior zones. There are dependent crackles. No egophony. No convincing diffuse wheezing. CARDIAC: Distant, generally regular, but tachycardic. Peripheral pulses markedly diminished, but palpable. No significant edema. ABDOMEN: Obese and soft with active bowel sounds. There is no obvious organomegaly or masses. EXTREMITIES: Show no cyanosis or clubbing. There are rashes suggestive of underlying psoriasis. NEUROLOGIC: She is sedate, but does move extremities with stimulation. PSYCHIATRIC: Exam shows her to be sedate. OTHER LABORATORY DATA: Shows sodium 141, K of 4.5, chloride of 105, CO2 of 24, BUN 17, creatinine 1.03, glucose 302. BNP 993. White blood cell count elevated at 23,000, segs 56%, and no bands. Hemoglobin 13.8, platelet count of 365,000. Respiratory panel is negative especially for COVID-19. IMAGING DATA: Chest x-ray as outlined above. Her EKG shows a sinus tachycardia with some nonspecific ST-T wave abnormalities. MICROBIOLOGY: Blood culture pending. Sputum culture was just sent. IMPRESSION: 1. Hypoxemic and hypercapnic respiratory failure requiring mechanical ventilation. 2. Profound metabolic acidosis. 3. Pulmonary edema. RECOMMENDATIONS: At this point, we will facilitate transfer to the intensive care unit. She was intolerant to propofol. On low dose Versed she is somewhat agitated and we will supplement her sedation as needed. Ventilator changes were made by myself. Repeat blood gas is pending. We will get a stat echo. Serial enzymes are pending. She will be aggressively diuresed as tolerated by her blood pressure and renal function. Given her diabetes history, we will do serial glucoses with standard sliding scale insulin coverage. Ulcer and deep vein thrombosis (DVT) prophylaxis have been ordered. In view of her elevated white count, we will empirically add antimicrobials for concern over outpatient respiratory infection, as that cannot be ruled out based on her x-ray. Urinalysis will be ordered as well. She did not have a fever. At this point, we will proceed as outlined above. Overall she does remain critically ill. Further recommendations will be made in the progress record as new information becomes available. I left the bedside at 0925 hours. TOTAL CRITICAL CARE TIME: 40 minutes delivered at the bedside not including procedures.
[2021-02-09] MEDS: IPRATROPIUM 0.5MG/ALBUTEROL 2.5MG INH SOL UD 3ML (DUONEB) NEB SCH ×3 (10:35→18:47)
[2021-02-09] MEDS ORDERED: GLUCOSE 4GM CHEW TABLET PO PRN (10:50)
[2021-02-09] MEDS ORDERED: GLUCAGON INJ 1MG VIAL SC PRN (10:50)
[2021-02-09] MEDS ORDERED: DEXTROSE 50% 50 ML SYRINGE IV PRN (10:50)
[2021-02-09 11:06] LABS: APPEARANCE, URINE CLEAR (CLEAR); BACTERIA, URINE AUTO 1+ (NEGATIVE); BILIRUBIN, URINE AUTO NEGATIVE (NEGATIVE); BLOOD, URINE BLOOD 1+ (NEGATIVE); COLOR, URINE STRAW (YELLOW); GLUCOSE, URINE (UA) AUTO 2+ mg/dL (NEGATIVE); KETONE, URINE AUTO NEGATIVE (NEGATIVE); LEUKOCYTE ESTERASE, URINE AUTO NEGATIVE (NEGATIVE); MUCUS, URINE SMALL (NEGATIVE); NITRITE, URINE AUTO NEGATIVE (NEGATIVE); PROTEIN, URINE AUTO 1+ mg/dL (NEGATIVE); RBC, URINE AUTO 13 /HPF (0-3); SPECIFIC GRAVITY URINE AUTO 1.006 (1.002-1.035); SQUAMOUS EPITHELIAL CELL UR AU 0 /HPF (0-6); UROBILINOGEN, URINE AUTO 0.2 mg/dL (0.0-2.0); WBC, URINE AUTO 1 /HPF (0-3)
[2021-02-09] MEDS ORDERED: HumaLOG INSULIN (NovoLOG) PER UNIT SC SCH (12:00)
[2021-02-09] MEDS: CHLORHEXIDINE GLUCONATE 0.12 % 15ML UDC (PERIDEX ORAL RINSE) MT SCH ×2 (13:53→20:54)
[2021-02-09] MEDS: PANTOPRAZOLE 40MG VIAL (C9113 PER 1) IV SCH (13:53)
[2021-02-09] MEDS: HEPARIN SOD (PORCINE) 5000UNITS/ML 1ML VIAL/SYRINGE SC SCH ×2 (13:53→20:54)
[2021-02-09] MEDS: PIPERACILLIN/TAZOBACTAM SOD 3.375 GM in D5W MINI-BAG PLUS 50 ML IV SCH ×2 (13:54→19:25)
[2021-02-09 14:14] LABS: CALCIUM LEVEL 8.3 MG/DL (8.8-10.2); CK-MB VALUE MASS 4.5 NG/ML (<3.6); CREATININE FOR GFR 1.35 MG/DL (0.55-1.30); MB/CK RELATIVE INDEX 5.36 (< OR =4); POTASSIUM SERUM 4.5 MEQ/L (3.5-5.1); TROPONIN I 0.48 NG/ML (< 0.10)
[2021-02-09 14:22] LABS: ABG BASE EXCESS -8.5 (-2.0-2.0); ABG HCO3 17.7 MEQ/L (22.0-26.0); ABG O2 SATURATION 97.3 % (95.0-99.0); ABG PARTIAL PRESSURE CO2 38.8 mmHg (35.0-45.0); ABG PARTIAL PRESSURE O2 104.6 mmHg (75.0-100.0); ABG STANDARD HCO3 17.6 MEQ/L (22.0-26.0); ABG TOTAL CO2 18.9 MEQ/L (23.0-31.0); ABG pH (ARTERIAL) 7.276 UNITS (7.350-7.450)
[2021-02-09] MEDS ORDERED: NS 1,000 ML IV SCH (15:15)
[2021-02-09] MEDS ORDERED: NS 1,000 ML IV ONE ×2 (15:45→19:40)
[2021-02-09] MEDS ORDERED: FUROSEMIDE 100MG/10ML VIAL (J1940) IV SCH (16:00)
[2021-02-09] MEDS: INSULIN REGULAR IN 0.9 % NACL 100 UNIT in IV 1 EA IV SCH ×2 (16:09)
[2021-02-09] MEDS: INSULIN IV RATE CHANGE DOCUMENTATION ML/HR XX SCH ×6 (17:02→23:03)
[2021-02-09] MEDS: MORPHINE 2 MG/ML 1ML VIAL (J2270) IV PRN (17:49)
--- NOTE | 2021-02-09 18:14 | ECHO ---
ECHOCARDIOGRAM DATE OF PROCEDURE: 02/08/2021 Age: 65 Gender: Height: 152 cm Weight: 97 kg Patient location: Room 3210 REFERRING PROVIDER: Dr. Kearney INDICATION: Congestive heart failure. 2D MEASUREMENTS: IVS 1.3 cm LV 4.3 cm LVPW 1.2 cm Aortic root 3.2 cm LA 3.5 cm IVC 2.5 cm DOPPLER MEASUREMENTS: Peak velocity across the aortic valve 5.1 m/s Peak velocity across the LVOT 0.9 m/s Peak gradient across the aortic valve 103 mmHg Mean gradient across the aortic valve 73 mmHg Mitral E 0.85, mitral 1.35 with a ratio of 0.63 2D COMMENTS: 1. Technically limited study due to poor acoustic window. 2. The left ventricular size is normal with mildly increased left ventricular wall thickness. Left ventricular systolic function is normal, estimated at 55%-65%. 3. Subjectively, the left atrium appeared to be mildly enlarged. The right atrium and right ventricle appeared to be normal in limited views. 4. Normal aortic root. 5. Trace to small pericardial effusion noted. No evidence of cardiac tamponade. Pleural effusion was noted in limited views. 6. Markedly calcified aortic valve with decrease in leaflet excursion. Mildly calcified mitral annulus with normal-appearing mitral valve leaflet motion. Normal tricuspid valve noted in limited views. The pulmonic valve appeared to be normal. The proximal pulmonary artery branches were not well visualized. 7. The inferior vena cava is dilated. Central venous pressure mildly elevated. DOPPLER: It detects trace mitral regurgitation, trace pulmonic regurgitation. Abnormal relaxation pattern was noted across the mitral valve leaflets as well as the mitral valve annulus, consistent with features of grade 1 left ventricular diastolic dysfunction. IMPRESSION: 1. Normal global left ventricular systolic function with mild concentric left ventricular hypertrophy. There are some features of grade 1 left ventricular diastolic dysfunction manifested by abnormal relaxation. 2. Aortic valve sclerosis with severe/critical aortic stenosis. No evidence of aortic regurgitation. 3. Mitral annulus calcification with trace mitral regurgitation and a mildly enlarged left atrium. 4. There are some features of elevated central venous pressure. The inferior vena cava was mildly enlarged. 5. Trace to small pericardial effusion. No evidence of cardiac tamponade. Pleural effusion was noted in limited views. MTDD
[2021-02-09] MEDS: D5W/0.45% SODIUM CHLORIDE 1,000 ML IV SCH (20:42)
[2021-02-10] VITALS (82 sets, daily range): BP systolic 74–145; BP diastolic 36–74
[2021-02-10] MEDS: IPRATROPIUM 0.5MG/ALBUTEROL 2.5MG INH SOL UD 3ML (DUONEB) NEB SCH ×7 (00:59→23:50)
[2021-02-10] MEDS: MIDAZOLAM INJ 2MG/2ML VIAL (J2250 PER 1MG) IV PRN ×15 (01:20→23:15)
[2021-02-10] MEDS: PIPERACILLIN/TAZOBACTAM SOD 3.375 GM in D5W MINI-BAG PLUS 50 ML IV SCH ×4 (02:02→19:55)
[2021-02-10] MEDS: propofoL 1,000 MG in IV 1 EA IV SCH ×3 (02:25→16:16)
[2021-02-10 04:29] LABS: BASO % 0.1 % (0.0-1.0); LYMPH # 0.8 10^3/uL (1.5-5.0); LYMPH % 4.5 % (24.0-44.0); MEAN CORPUSCULAR HEMOGLOBIN 26.8 pg (27.0-33.0); MEAN CORPUSCULAR HGB CONC 31.9 g/dl (32.0-36.5); MONO # 0.9 10^3/uL (0.0-0.8); MONO % 5.4 % (2.0-8.0); NEUTROPHILS # 15.4 10^3/uL (1.5-8.5); NEUTROPHILS % 89.3 % (36.0-66.0); RED BLOOD COUNT 3.81 10^6/uL (4.00-5.40); WHITE BLOOD COUNT 17.3 10^3/uL (4.0-10.0)
[2021-02-10 04:49] LABS: HEMOGLOBIN 10.2 g/dl (12.0-15.5); PLATELET COUNT, AUTOMATED 222 10^3/uL (150-450)
[2021-02-10 05:10] LABS: ALBUMIN 2.8 GM/DL (3.2-5.2); ALT/SGPT 17 U/L (12-78); BILIRUBIN,TOTAL 0.4 MG/DL (0.2-1.0); BLOOD UREA NITROGEN 21 MG/DL (7-18); CALCIUM LEVEL 7.4 MG/DL (8.8-10.2); CARBON DIOXIDE LEVEL 24 MEQ/L (21-32); CHLORIDE LEVEL 112 MEQ/L (98-107); CHOLESTEROL LEVEL 186 MG/DL (< 200); CPK CREATINE PHOSPHOKINASE 93 U/L (26-192); CREATININE FOR GFR 0.96 MG/DL (0.55-1.30); GLOMERULAR FILTRATION RATE > 60.0 (>45); GLUCOSE, FASTING 173 MG/DL (70-100); LDH LACTATE DEHYDROGENASE 219 U/L (84-246); PHOSPHORUS LEVEL 2.3 MG/DL (2.5-4.9); POTASSIUM SERUM 3.9 MEQ/L (3.5-5.1); SODIUM LEVEL 143 MEQ/L (136-145); TOTAL PROTEIN 5.7 GM/DL (6.4-8.2); TRIGLYCERIDES LEVEL 131 MG/DL (<150)
[2021-02-10] MEDS: HEPARIN SOD (PORCINE) 5000UNITS/ML 1ML VIAL/SYRINGE SC SCH ×3 (05:20→21:45)
[2021-02-10] MEDS: MORPHINE 2 MG/ML 1ML VIAL (J2270) IV PRN ×7 (06:29→23:18)
[2021-02-10 06:47] LABS: ABG BASE EXCESS -2.5 (-2.0-2.0); ABG HCO3 22.1 MEQ/L (22.0-26.0); ABG O2 SATURATION 97.5 % (95.0-99.0); ABG PARTIAL PRESSURE CO2 37.5 mmHg (35.0-45.0); ABG PARTIAL PRESSURE O2 92.3 mmHg (75.0-100.0); ABG STANDARD HCO3 22.3 MEQ/L (22.0-26.0); ABG TOTAL CO2 23.2 MEQ/L (23.0-31.0); ABG pH (ARTERIAL) 7.388 UNITS (7.350-7.450)
[2021-02-10] MEDS: INSULIN IV RATE CHANGE DOCUMENTATION ML/HR XX SCH ×9 (06:53→23:05)
[2021-02-10] MEDS: PANTOPRAZOLE 40MG VIAL (C9113 PER 1) IV SCH (08:31)
[2021-02-10] MEDS: D5W/0.45% SODIUM CHLORIDE 1,000 ML IV SCH ×2 (08:31→18:09)
[2021-02-10] MEDS: CHLORHEXIDINE GLUCONATE 0.12 % 15ML UDC (PERIDEX ORAL RINSE) MT SCH ×2 (08:31→21:44)
--- NOTE | 2021-02-10 08:32 | REP ---
INDICATION: Resp Failure. COMPARISON: Multiple the latest 02/09/2021 at 7:29 a.m. TECHNIQUE: Portable FINDINGS: The technique utilized in obtaining the radiograph has magnified the cardiac silhouette and accentuated the interstitial markings. The nasogastric tube has been retracted somewhat the proximal port is now at the level of the gastroesophageal junction or just distal to it. The endotracheal tube tip is seen at the level of the cem. It has been advanced somewhat compared to the prior exam. Left retrocardiac opacities silhouetting out the left cardio phrenic angle have developed since the last exam. The lung bynum are otherwise somewhat improved.. The osseous structures are unchanged. IMPRESSION: 1. Tubes as described above. Consider 2 cm retraction of the endotracheal tube and 5 cm advancement of the nasogastric tube if clinically relevant. 2. New left retrocardiac opacities possibly reflecting subsegmental atelectatic change or pneumonia. Follow-up is suggested. 3. Other findings as described above. <Electronically signed by Chad Bran > 02/10/21 [id number]
[2021-02-10] MEDS ORDERED: MIDAZOLAM HCL 100 MG in D5W 80 ML IV SCH (09:53)
--- NOTE | 2021-02-10 11:05 | CCN ---
CRITICAL CARE NOTE DATE: 02/10/2021 START TIME: 919 STOP TIME: 10 o'clock SUBJECTIVE: I again attended Tamiko Poole here in the intensive care unit. The patient has been examined, chart reviewed. I spoke at length with the nurse at the bedside as well as with Dr. Pathak from cardiology this morning. T max overnight 97.6, blood pressure generally in the 100s. It briefly had a drip into the 80s. Heart rate generally in the 80s to 90s with a sinus mechanism. Respiratory rate 18 via the ventilator. Ins and Os midnight to midnight 2983 mL in with 2300 mL out. Most recent laboratory show a white blood cell count down to 17.3, hemoglobin 10.2, platelet count of 223,000, 89% segs, no bands, sodium of 143, potassium 3.9, chloride 112, CO2 24, BUN 21, creatinine 0.96, glucose down to 173. She is on an insulin drip. Her lactic acid did clear. It was 2.3 last night at 23:05 and this morning, 0407 hours was down to 1.7. Her troponin, however, this morning is 0.78. Her EKG done at 0904 hours compared to yesterday does show some lateral ST-T wave abnormalities. I have spoken with Dr. Pathak in that regard. Most recent arterial blood gas done on PRVC rate of 18, tidal volume 430, PEEP of 8, FiO2 of 30%. She has a pH 7.388, pCO2 of 37.5, pO2 of 92.3. Glucose is as outlined above. Her echocardiogram is reviewed and I spoke at length with Dr. Pathak about it. She does have very significant aortic stenosis with preserved LV function but some diastolic dysfunction. There is dilation of the left atrium. Chest x-ray shows no acute findings. ET tube and OG tube in good position. Still a hint of some increased vasculature. OBJECTIVE: General: On exam, she is sedate and intermittent requires increase in her sedation. She was intolerant to propofol due to hypotension. HEENT: Pupils do react. Sclerae clear. Trachea is in the midline. Chest: Shows some fine dependent basilar crackles but freely clear anteriorly. Expansion is symmetric. Cardiac: Distant but regular. Her murmur is audible today especially at the base at least 2-3/6 although very distant. Peripheral pulses diminished but palpable. No obvious edema. Abdomen: Obese, soft with active bowel sounds. No convincing organomegaly or masses. Extremities: Show no cyanosis or clubbing. Neurologic: She is sedate but moves all extremities. The most pressing problems requiring my immediate presence at the bedside: 1. Respiratory failure requiring mechanical ventilatory support. 2. Diabetes mellitus with DKA. 3. Secondary lactic acidosis. 4. Aortic stenosis. 5. Mildly elevated troponins with abnormal ECG. At this point, she is on an insulin drip. Her sugars are under better control. We will begin enteral feeds. We will continue with IV hydration for now as she finally has cleared her lactic acid. The etiology of that remains somewhat unclear. Her chest x-ray is not overlying convincing for a primary pneumonitis. Her cultures to date have been negative. There is certainly the distinct possibility that her elevated white count was on the basis of stress but that certainly would not explain her elevated lactate although her cardiac dysfunction may. Dr. Pathak will see her this morning from a cardiology standpoint as the concern is raised should she require transfer for further evaluation and if so, probably better to do this while she is still intubated and save her the stress of decreasing her sedation and push for extubation. I will speak with her today in that regard. In the interim, we will continue her broad-spectrum antimicrobials. Ulcer and DVT prophylaxis are in place and I await word from Dr. Pathak whether or not she should be fully anticoagulated. We will begin enteral feeds and closely monitor her sugars. We will try and understand her mode of ventilation but I will not push her waiting until I get definitive word from cardiology. At this point, she remains critically ill. I left the bedside at 10 o'clock. 40 minute of critical care time at the bedside, not including procedures.
[2021-02-10] MEDS: INSULIN REGULAR IN 0.9 % NACL 100 UNIT in IV 1 EA IV SCH ×2 (12:02)
[2021-02-10] MEDS: MIDAZOLAM HCL 100 MG in D5W 80 ML IV SCH (12:03)
--- NOTE | 2021-02-10 15:05 | ECGEPIP ---
[facility] Test Date: 2021-02-10 Pat Name: JOSHUA BLANCAS Department: Room: [place] [address] Gender: Female Costumer: manuela : 1955 Requested By: Fran Kearney Order Number: [id number] Reading MD: Keke Mayorga Measurements Intervals [place] Rate: 90 P: 40 PA: 136 QRS: 30 QRSD: 80 T: 138 QT: 372 QTc: 455 Interpretive Statements Normal sinus rhythm RATE SLOWER IRBBB T wave abnormality, consider lateral ischemia NEW C/W02/09/21 Electronically Signed on 02-10-2021 15:04:59 EDT by Keke Mayorga
--- NOTE | 2021-02-10 18:16 | CR ---
CONSULTATION DATE: 02/10/2021 REFERRING PROVIDER: Fran Kearney M.D. LOCATION: Room 3210 REASON FOR CONSULTATION: Aortic stenosis, abnormal serum troponin, abnormal EKG. HISTORY OF PRESENT ILLNESS: 65-year-old woman with a history of hypertension, diabetes mellitus, obesity, obstructive sleep apnea as well as heart murmur, came EMS yesterday in the senior program analyst hours because of increasing shortness of breath and the patient was brought to the emergency room for further evaluation. She was placed on noninvasive respiratory support but could not tolerate it and she was then intubated. ABG done after, the first ABG revealed a pH of 7.14 with a pCO2 of 68.7 and pO2 of 405. She had an echocardiogram that revealed severe/critical aortic stenosis with an overall normal global left ventricular systolic function. She was found yesterday and today to have a minimally abnormal serum troponin and some new EKG changes. Cardiology consult was called. When I saw Mrs. Tamiko Poole in the senior program analyst hours, she was still intubated in no acute distress at rest. Her vital signs were stable with a blood pressure of 108/58 and a pulse of 90 beats per minute, respirations 18 and her oxygen saturation was 94% on an FiO2 of 0.30. She is afebrile with a temperature of 98.4 degrees Fahrenheit. PHYSICAL EXAMINATION: Patient as demonstrated above is intubated and sedated. Examination of the head: Atraumatic. Neck: Supple and no JVD appreciated. Carotid bruits heard. Lungs: Clear bilaterally on auscultation without any wheezing. No crackles heard anteriorly. Heart examination: Revealed regular heart sounds, no rubs or gallops. The PMI is not displaced. There is no rub. Heart sounds are decreased and there is a systolic murmur grade 3-4/6 over the precordium loudly at the base of the heart with some radiation to the neck. Abdomen: Soft. Extremities: Revealed she has no pedal edema. Neurologic examination: Not done. MEDICATIONS: The patient currently is on D5 normal saline at 100 mL an hour, regular insulin coverage, propofol, piperacillin/tazobactam, subcu heparin, DuoNeb, Glucagon as needed, glucose as needed, midazolam continuously per protocol, midazolam as needed for agitation, pantoprazole 40 mg IV daily, chlorhexidine twice a day. LABORATORY DATA: CBC done admission revealed a WBC of 23,000 with hemoglobin of 13.8, hematocrit of 45.9 and platelets of 365,000. CBC done today revealed a WBC of 17,000, hemoglobin 10.2, hematocrit 32.0 and platelets 222,000. BMP done today revealed a sodium of 143, potassium 3.9, chloride 112, CO2 24, BUN 21, creatinine 0.96, GFR more than 60, fasting glucose 173, calcium 7.4. Liver enzymes done revealed a total bilirubin of 0.4, AST 15, ALT 17, alkaline phosphatase 61, total bilirubin 5.7, albumin 2.8. Serum lactic acid today is 1.7 and yesterday on admission, it was 4.8. Serum proBNP on admission was 993. Serum troponins are: 0.05, 0.48, 0.78 and 0.84 respectively #1 up to #4. On admission, BUN and creatinine were 17 and 1.73 respectively. Toxicology revealed a serum beta-hydroxybutyrate of 4.27, elevated. Urinalysis revealed +1 protein, +2 glucose, +1 blood and +1 RBCs. Leukocyte esterase was negative. ABG done today revealed pH of 7.39, pCO2 37.5 and pO2 92.3. Blood cultures have been negative. Respiratory virus panel is negative including SARS COVID-19. Electrocardiogram done on admission revealed sinus tachycardia at 150 beats per minute and nonspecific ST-T abnormalities. EKG done today, 02/10/2021 revealed normal sinus rhythm at 90 beats per minute and Q wave inversion noted in the anterolateral leads that is new when compared with testing on 02/09/2021. Echocardiogram done yesterday, 02/09/2021 revealed a normal global left ventricular systolic function estimated at 55-65% with severe critical aortic stenosis, mildly enlarged left atrium with trace mitral regurgitation, trace to small pericardial effusion. The inferior vena cava was mildly enlarged at 2.5 cm. Peak gradient across the aortic valve was reported to be 103 mmHg with a mean gradient of 73 mmHg and a peak velocity of 5.1 meter m/s. IMPRESSION: 1. Respiratory failure related to a combination of factors such as DKA and with severe critical aortic stenosis as well as history of COPD. I have discussed with kiosk sales representative. He does not believe there is any pneumonia. The patient has been afebrile, currently intubated and sedated with stable vital signs. 2. Aortic stenosis, probably severe. The peak velocity is probably overestimated. The patient does have a history of heart murmur/aortic stenosis and she was being monitored by Dr. Rodríguez who was planning to do a stress test on her this coming month of February. She really needs a cardiac catheterization at this present time and this was then discussed with the business project analyst team in [place]. It was agreed to transfer her by tomorrow, 02/11/2021, preferrably after being extubated. We will continue supportive care. 3. Abnormal serum troponin and abnormal EKG, probably type 2 PR and related to her underlying valvular heart disease/aortic stenosis. I have reviewed her medications, we will continue the same for now. She may stay on the subcu heparin. 4. Status post DKA. 5. History of diabetes mellitus. 6. History of hypertension. 7. History of COPD. 8. History of glaucoma. It was a pleasure to participate in the care of Mrs. Tamiko Poole for her underlying cardiac condition. I will continue to monitor her along with you while in the hospital. Please do not hesitate to call if any questions. KIANNA
[2021-02-10 22:12] LABS: BLOOD UREA NITROGEN 16 MG/DL (7-18); CALCIUM LEVEL 7.4 MG/DL (8.8-10.2); CARBON DIOXIDE LEVEL 25 MEQ/L (21-32); CHLORIDE LEVEL 110 MEQ/L (98-107); CREATININE FOR GFR 0.84 MG/DL (0.55-1.30); GLOMERULAR FILTRATION RATE > 60.0 (>45); GLUCOSE, FASTING 150 MG/DL (70-100); POTASSIUM SERUM 3.5 MEQ/L (3.5-5.1); SODIUM LEVEL 141 MEQ/L (136-145)
[2021-02-11] VITALS (53 sets, daily range): BP systolic 80–140; BP diastolic 46–96
[2021-02-11] MEDS: INSULIN IV RATE CHANGE DOCUMENTATION ML/HR XX SCH ×5 (00:11→11:20)
[2021-02-11] MEDS: MIDAZOLAM HCL 100 MG in D5W 80 ML IV SCH ×2 (01:07→12:51)
[2021-02-11] MEDS: MORPHINE 2 MG/ML 1ML VIAL (J2270) IV PRN ×9 (01:26→22:17)
[2021-02-11] MEDS: PIPERACILLIN/TAZOBACTAM SOD 3.375 GM in D5W MINI-BAG PLUS 50 ML IV SCH ×4 (02:10→19:50)
[2021-02-11] MEDS: IPRATROPIUM 0.5MG/ALBUTEROL 2.5MG INH SOL UD 3ML (DUONEB) NEB SCH ×6 (03:53→23:37)
[2021-02-11] MEDS: propofoL 1,000 MG in IV 1 EA IV SCH ×2 (04:56→14:25)
[2021-02-11 05:08] LABS: BASO # 0.1 10^3/uL (0.0-0.2); BASO % 0.3 % (0.0-1.0); EOS # 0.1 10^3/uL (0.0-0.5); EOS % 0.8 % (0.0-3.0); HEMOGLOBIN 9.8 g/dl (12.0-15.5); LYMPH # 2.5 10^3/uL (1.5-5.0); LYMPH % 16.1 % (24.0-44.0); MEAN CORPUSCULAR HEMOGLOBIN 26.6 pg (27.0-33.0); MEAN CORPUSCULAR HGB CONC 30.6 g/dl (32.0-36.5); MEAN CORPUSCULAR VOLUME 86.7 fl (80.0-96.0); MONO # 0.8 10^3/uL (0.0-0.8); MONO % 5.2 % (2.0-8.0); NEUTROPHILS # 12.2 10^3/uL (1.5-8.5); NEUTROPHILS % 77.1 % (36.0-66.0); PLATELET COUNT, AUTOMATED 215 10^3/uL (150-450); RED BLOOD COUNT 3.69 10^6/uL (4.00-5.40); WHITE BLOOD COUNT 15.8 10^3/uL (4.0-10.0)
[2021-02-11 05:27] LABS: ALBUMIN 2.7 GM/DL (3.2-5.2); ALT/SGPT 17 U/L (12-78); BILIRUBIN,TOTAL 0.4 MG/DL (0.2-1.0); BLOOD UREA NITROGEN 15 MG/DL (7-18); CALCIUM LEVEL 7.6 MG/DL (8.8-10.2); CARBON DIOXIDE LEVEL 26 MEQ/L (21-32); CHLORIDE LEVEL 111 MEQ/L (98-107); CHOLESTEROL LEVEL 183 MG/DL (< 200); CPK CREATINE PHOSPHOKINASE 138 U/L (26-192); CREATININE FOR GFR 0.75 MG/DL (0.55-1.30); GLOMERULAR FILTRATION RATE > 60.0 (>45); GLUCOSE, FASTING 170 MG/DL (70-100); LDH LACTATE DEHYDROGENASE 207 U/L (84-246); PHOSPHORUS LEVEL 2.8 MG/DL (2.5-4.9); POTASSIUM SERUM 3.8 MEQ/L (3.5-5.1); SODIUM LEVEL 142 MEQ/L (136-145); TOTAL PROTEIN 5.7 GM/DL (6.4-8.2); TRIGLYCERIDES LEVEL 270 MG/DL (<150)
[2021-02-11 05:40] LABS: ABG BASE EXCESS -4.6 (-2.0-2.0); ABG HCO3 20.6 MEQ/L (22.0-26.0); ABG O2 SATURATION 99.1 % (95.0-99.0); ABG PARTIAL PRESSURE CO2 38.6 mmHg (35.0-45.0); ABG PARTIAL PRESSURE O2 187.7 mmHg (75.0-100.0); ABG STANDARD HCO3 20.7 MEQ/L (22.0-26.0); ABG TOTAL CO2 21.8 MEQ/L (23.0-31.0); ABG pH (ARTERIAL) 7.346 UNITS (7.350-7.450)
[2021-02-11] MEDS: HEPARIN SOD (PORCINE) 5000UNITS/ML 1ML VIAL/SYRINGE SC SCH ×3 (06:08→21:23)
[2021-02-11] MEDS: D5W/0.45% SODIUM CHLORIDE 1,000 ML IV SCH ×3 (07:26→21:48)
--- NOTE | 2021-02-11 08:14 | REP ---
INDICATION: Resp Failure. COMPARISON: February 10, 2021. TECHNIQUE: Portable upright AP chest radiograph. FINDINGS: Endotracheal tube is seen in position just above the cem. NG tube enters the left upper quadrant. EKG electrodes are is visible. Cardiomegaly is again observed. Increased markings are seen in both bases. Left more so than right although partially obscured by wires in tubing. IMPRESSION: Cardiomegaly. Endotracheal and nasogastric tubes. Increased markings in the bases. <Electronically signed by Matheus Fontana > 02/11/21 [id number]
[2021-02-11] MEDS: CHLORHEXIDINE GLUCONATE 0.12 % 15ML UDC (PERIDEX ORAL RINSE) MT SCH ×2 (09:02→21:23)
[2021-02-11] MEDS: PANTOPRAZOLE 40MG VIAL (C9113 PER 1) IV SCH (09:03)
[2021-02-11] MEDS: ASPIRIN 325 MG TAB NG SCH (09:03)
--- NOTE | 2021-02-11 10:53 | CCN ---
CRITICAL CARE NOTE DATE: 02/11/2021 START TIME: 844 STOP TIME: 924 SUBJECTIVE: I again attended Tamiko Poole here in the Intensive Care Unit. Patient has been examined. Chart reviewed. I spoke at length with Dr. Pathak regarding her over the weekend. T-max overnight 98.2. Blood pressure 80 to the 120s. Heart rate generally in the low 100s but currently in the 80s. Respiratory rate generally 18. Occasionally does overbreathe the ventilator. Ins and outs midnight to midnight 2,640 mL in with 940 mL out. Most recent laboratories showed a white blood cell count of 15.8, hemoglobin 9.8, platelet count 215,000, 77% segs, no bands. Sodium 142, potassium 3.8, chloride 111, CO2 26, BUN 15, creatinine 0.75, glucose 170. She remains on an insulin drip. Troponin diminished from yesterday to 0.45 today. Arterial blood gas done on SIMV of 18, tidal volume of 400, PEEP of 5, pressure support of 10, and FiO2 of 45% has pH of 7.346, pCO2 of 38.6, and a pO2 of 187.7. Chest x-ray shows tubes in good position, cardiomegaly, no acute infiltrates. Persistent mild increase in interstitial markings. All cultures negative to date. Sputum culture and gram stain showed some WBCs, a few gram-positive cocci, but final culture is pending. Repeat ECG this morning is pending. Through the night intermittently she is quite agitated. She did require increase of her Versed. Low dose propofol does help some, but she is intolerant of it really from a blood pressure standpoint. We are awaiting a bed at [facility] as Dr. Pathak's conversation with Dr. Doran clearly indicates a need for her to be studied in the labor crew supervisor. OBJECTIVE: GENERAL: She is sedate. HEENT: Pupils react. Sclera clear. Trachea is in the midline. LUNGS: Quite clear anteriorly. There are some fine dependent crackles. No focal adventitious breath sounds are identified. CARDIAC: Distant. Her harsh aortic stenosis murmur is unchanged. Peripheral pulses diminished but palpable. Minimal edema. ABDOMEN: Obese, soft with active bowel sounds. No convincing organomegaly or masses. EXTREMITIES: No cyanosis or clubbing. NEUROLOGIC: She is quite sedate. MOST PRESSING PROBLEMS REQUIRING MY PRESENCE AT THE BEDSIDE: 1. Respiratory failure, multifactorial, requiring mechanical ventilatory support. 2. Abnormal troponins. 3. Aortic stenosis. 4. DKA. 5. Mild metabolic acidosis as a separate issue. 6. History of hypertension, suspect given history of underlying obstructive disease. 7. History of glaucoma. PLAN: At this point will try to lighten her sedation as able. Since there are no beds available at [facility] and her troponin is trending down, we will try pushing her weaning from the ventilator. In the interim, I will increase her tube feeds. In view of this and the volatility of her serum glucoses, I will keep the insulin drip for now. I appreciate the help of Cardiology. She remains on ulcer and DVT prophylaxis. Aspirin has been added for her cardiac dysfunction. Her renal function has improved. Will proceed as outlined above. She still remains critically ill, and her prognosis remains guarded as there is a high likelihood of further decompensation, especially in view of her presentation. For now also in view of her presentation, I have continued her broad spectrum antimicrobials. We will continue those for now. I will send off a procalcitonin. Will proceed as outlined above. I left the bedside at 0925 hours. Forty minutes of critical care time at the bedside not including procedures.
--- NOTE | 2021-02-11 10:53 | IPN ---
PROGRESS NOTE DATE: 02/11/2021 SUBJECTIVE: Mrs. Lanza remains in ICU. She is sedated and intubated. There were no unusual events overnight. OBJECTIVE: Her current vital signs are blood pressure 92/55. Heart rate has been from 80s to 90s. She is afebrile. Saturation is 99% on 40% FiO2. Weight was not recorded this morning. It was 94.5 kg yesterday. Her urine output for the day yesterday was about 900 mL. She already made a little over 200 mL of urine today. She is sedated and does not respond to verbal stimuli or light painful stimuli but apparently during the night was intermittently awakened and quite agitated if not sedated. It is very difficult to appliance worker her CVP due to her body habitus. Lungs reveal occasional crackle. I do not appreciate wheezes or rhonchi. Heart exam reveals regular rhythm. There is a murmur that is heard over the aortic valve about 3/6 in intensity with diminished second heart found. Abdomen is obese but soft. There is no significant edema. Peripheral pulses are palpable even though the pulse is rather weak. Neurologic status is difficult to assess due to her sedation. LABORATORY: Basic metabolic panel this morning: Sodium 142, potassium 3.8, BUN 15, creatinine 0.8 and glucose 170. Calcium 7.6. Normal liver function tests. Her troponin is down to 2.45. Albumin 2.7. CBC: WBC count 15.8, hemoglobin 9.8, hematocrit 32 and platelet count is 215,000. ASSESSMENT AND PLAN: Mrs. Lanza is a 65-year-old lady who was intubated shortly after arrival to emergency room complaining about dyspnea. She was found to have mild acidosis but at the same time was found to have probably critical aortic stenosis with mean gradient exceeding 70 mmHg. At this point, I think she will need transfer for cardiac catheterization but the first step would be to extubate the patient to be able to obtain some history. We also will need her consent for procedures. I do believe that it is possible that it can be accomplished today. I spoke with Dr. Crum at [facility] in [place] and obviously depending on bed availability, he is ready to get the patient transferred. As far as the minimal troponin elevation is concerned, even though she has nonspecific repolarization abnormalities on EKG, I do not believe it is likely representing thrombotic event. Much more likely, this is type 2 event due to demand ischemia in setting of severe aortic stenosis. Once her oral intake is reestablished, we will have to put her back on a statin and at least a baby aspirin. I do not believe that she will tolerate any beta blockers or any medications with blood pressure-reducing effect. MTDD
[2021-02-11 11:27] LABS: ABG BASE EXCESS -1.5 (-2.0-2.0); ABG HCO3 23.9 MEQ/L (22.0-26.0); ABG O2 SATURATION 98.1 % (95.0-99.0); ABG PARTIAL PRESSURE CO2 42.9 mmHg (35.0-45.0); ABG PARTIAL PRESSURE O2 120.1 mmHg (75.0-100.0); ABG STANDARD HCO3 23.2 MEQ/L (22.0-26.0); ABG TOTAL CO2 25.2 MEQ/L (23.0-31.0); ABG pH (ARTERIAL) 7.363 UNITS (7.350-7.450)
[2021-02-11] MEDS: MIDAZOLAM INJ 2MG/2ML VIAL (J2250 PER 1MG) IV PRN ×7 (11:35→22:31)
[2021-02-11] MEDS ORDERED: GLUCAGON INJ 1MG VIAL SC PRN (12:45)
[2021-02-11] MEDS ORDERED: GLUCOSE 4GM CHEW TABLET PO PRN (12:45)
[2021-02-11] MEDS ORDERED: DEXTROSE 50% 50 ML SYRINGE IV PRN (12:45)
[2021-02-11] MEDS: HumaLOG INSULIN (NovoLOG) PER UNIT SC SCH ×2 (13:00→17:51)
--- NOTE | 2021-02-11 21:18 | ECGEPIP ---
[facility] Test Date: 2021-02-11 Pat Name: JOSHUA BLANCAS Department: Room: [place] [address] Gender: Female City Plant Supervisor: KYREE : 1955 Requested By: Fran Kearney Order Number: [id number] Reading MD: James Oneill Measurements Intervals [place] Rate: 91 P: 47 CT: 130 QRS: 31 QRSD: 80 T: 140 QT: 338 QTc: 415 Interpretive Statements Normal sinus rhythm Poor R wave progression Nonspecific ST-T abnormality, possible high lateral myocardial ischemia. Improved repolarization compared with 02/10/2021. Electronically Signed on 02-11-2021 21:17:44 EDT by James Oneill
[2021-02-11] MEDS: ATORVASTATIN 20 MG TAB NG SCH (21:23)
[2021-02-12] VITALS (23 sets, daily range): BP systolic 85–132; BP diastolic 46–63
[2021-02-12] MEDS: MIDAZOLAM INJ 2MG/2ML VIAL (J2250 PER 1MG) IV PRN ×9 (00:33→22:49)
[2021-02-12] MEDS: MORPHINE 2 MG/ML 1ML VIAL (J2270) IV PRN ×7 (00:34→22:51)
[2021-02-12] MEDS: MIDAZOLAM HCL 100 MG in D5W 80 ML IV SCH ×3 (01:46→21:00)
[2021-02-12] MEDS: propofoL 1,000 MG in IV 1 EA IV SCH ×2 (02:25→14:25)
[2021-02-12] MEDS: PIPERACILLIN/TAZOBACTAM SOD 3.375 GM in D5W MINI-BAG PLUS 50 ML IV SCH ×4 (02:41→20:47)
[2021-02-12] MEDS: IPRATROPIUM 0.5MG/ALBUTEROL 2.5MG INH SOL UD 3ML (DUONEB) NEB SCH ×5 (04:52→19:56)
[2021-02-12 04:56] LABS: BASO % 0.3 % (0.0-1.0); EOS # 0.3 10^3/uL (0.0-0.5); EOS % 2.4 % (0.0-3.0); HEMATOCRIT 28.1 % (36.0-47.0); HEMOGLOBIN 8.7 g/dl (12.0-15.5); LYMPH # 2.1 10^3/uL (1.5-5.0); LYMPH % 18.1 % (24.0-44.0); MEAN CORPUSCULAR HEMOGLOBIN 26.6 pg (27.0-33.0); MEAN CORPUSCULAR VOLUME 85.9 fl (80.0-96.0); MONO # 0.7 10^3/uL (0.0-0.8); MONO % 6.3 % (2.0-8.0); NEUTROPHILS # 8.3 10^3/uL (1.5-8.5); PLATELET COUNT, AUTOMATED 200 10^3/uL (150-450); RED BLOOD COUNT 3.27 10^6/uL (4.00-5.40); WHITE BLOOD COUNT 11.5 10^3/uL (4.0-10.0)
[2021-02-12 05:25] LABS: ALBUMIN 2.6 GM/DL (3.2-5.2); ALT/SGPT 14 U/L (12-78); BILIRUBIN,TOTAL 0.6 MG/DL (0.2-1.0); BLOOD UREA NITROGEN 15 MG/DL (7-18); CALCIUM LEVEL 7.4 MG/DL (8.8-10.2); CARBON DIOXIDE LEVEL 25 MEQ/L (21-32); CHLORIDE LEVEL 107 MEQ/L (98-107); CHOLESTEROL LEVEL 157 MG/DL (< 200); CPK CREATINE PHOSPHOKINASE 74 U/L (26-192); CREATININE FOR GFR 0.95 MG/DL (0.55-1.30); GLOMERULAR FILTRATION RATE > 60.0 (>45); GLUCOSE, FASTING 221 MG/DL (70-100); LDH LACTATE DEHYDROGENASE 201 U/L (84-246); PHOSPHORUS LEVEL 3.1 MG/DL (2.5-4.9); POTASSIUM SERUM 4.5 MEQ/L (3.5-5.1); SODIUM LEVEL 137 MEQ/L (136-145); TOTAL PROTEIN 5.2 GM/DL (6.4-8.2); TRIGLYCERIDES LEVEL 186 MG/DL (<150)
[2021-02-12] MEDS: HEPARIN SOD (PORCINE) 5000UNITS/ML 1ML VIAL/SYRINGE SC SCH ×3 (05:48→22:49)
[2021-02-12] MEDS: HumaLOG INSULIN (NovoLOG) PER UNIT SC SCH ×4 (05:49→18:03)
[2021-02-12 06:14] LABS: ABG BASE EXCESS -2.7 (-2.0-2.0); ABG HCO3 22.5 MEQ/L (22.0-26.0); ABG O2 SATURATION 97.8 % (95.0-99.0); ABG PARTIAL PRESSURE CO2 40.9 mmHg (35.0-45.0); ABG PARTIAL PRESSURE O2 102.3 mmHg (75.0-100.0); ABG STANDARD HCO3 22.2 MEQ/L (22.0-26.0); ABG TOTAL CO2 23.8 MEQ/L (23.0-31.0); ABG pH (ARTERIAL) 7.359 UNITS (7.350-7.450)
--- NOTE | 2021-02-12 07:48 | REP ---
INDICATION: Resp Failure. COMPARISON: Comparison chest x-ray February 11, 2021. TECHNIQUE: Portable upright AP chest radiograph. FINDINGS: Endotracheal tube is seen in good position at the level of the transverse aorta. NG tube enters the left upper quadrant of the abdomen. EKG electrodes are again visible lower lying the chest. Heart size is near the upper a range of normal as before. There is slight blunting of the pleural angles bilaterally. Pulmonary vascular markings are not increased. No definite infiltrate. IMPRESSION: Suspect small bilateral effusions. Borderline heart size. Endotracheal and nasogastric tubes in place. <Electronically signed by Matheus Fontana > 02/12/21 0731
[2021-02-12] MEDS: CHLORHEXIDINE GLUCONATE 0.12 % 15ML UDC (PERIDEX ORAL RINSE) MT SCH ×2 (09:11→20:48)
[2021-02-12] MEDS: PANTOPRAZOLE 40MG VIAL (C9113 PER 1) IV SCH (09:11)
[2021-02-12] MEDS: ASPIRIN 325 MG TAB NG SCH (09:11)
--- NOTE | 2021-02-12 09:34 | ECGEPIP ---
[facility] Test Date: 2021-02-12 Pat Name: JOSHUA BLANCAS Department: Room: [place] [address] Gender: Female Kinesiotherapist: KYREE : 1955 Requested By: Tiffany Cruz Order Number: [id number] Reading MD: James Oneill Measurements Intervals [place] Rate: 83 P: 39 MN: 132 QRS: 29 QRSD: 76 T: 144 QT: 344 QTc: 404 Interpretive Statements Normal sinus rhythm Nonspecific ST and T wave abnormality. Improved R wave progression compared with 02/11/2021. Electronically Signed on 02-12-2021 9:34:07 EDT by James Oneill
--- NOTE | 2021-02-12 09:56 | CCN ---
CRITICAL CARE NOTE DATE: 02/12/2021 START TIME: 829 STOP TIME: 904 SUBJECTIVE: I again attending Tamiko Poole here in the Intensive Care Unit. Patient has been examined. Chart reviewed. I spoke at length with the nurse at the bedside. T-max overnight 98.8. Blood pressure varies from 85 to the low 100s without vasopressors. Heart rate generally in the 80s to the 90s. She does overbreathe the ventilator. Respiratory rate generally 14 to 20s. I's and O's midnight to midnight 1,669 mL in with 1,084 mL out. Most recent laboratories show a white blood cell count of 11.5, hemoglobin down to 8.7, platelet count of 200,000, 72% segs, no bands. Sodium 137, potassium 4.5, chloride 107, CO2 25, BUN 15, creatinine 0.95, glucose 221. Albumin 2.6. Procalcitonin 0.56. Sputum culture did grow Haemophilus parainfluenzae. Most recent blood gas done on SIMV of 10, tidal volume 400, PEEP 5, FiO2 of 30%, pressure support of 10 has a pH of 7.359, pCO2 of 40.9, and pO2 of 102.3. Chest x-ray shows lines and tubes in good position. Hypoventilatory effort. There is cardiomegaly. Cannot rule out mild infiltrate in the retrocardiac area. OBJECTIVE: GENERAL: She is sedate. HEENT: Pupils react. Sclera clear. Trachea is in the midline. Membranes are moist. CHEST: Clear anteriorly. Expansion is symmetrical but mildly diminished. There are dependent crackles. CARDIAC: Distant. Her harsh systolic murmur is unchanged. Peripheral pulses although diminished are palpable, and there is minimal edema. ABDOMEN: Obese, soft, nontender with active bowel sounds. No convincing organomegaly or masses. EXTREMITIES: No cyanosis or clubbing. NEUROLOGIC: She is sedate but moves all extremities when sedation is lightened. MOST PRESSING PROBLEMS REQUIRING MY PRESENCE AT THE BEDSIDE: 1. Respiratory failure requiring mechanical ventilatory support. 2. Metabolic acidosis, improved. 3. Aortic stenosis, severe. 4. Diabetes mellitus. 5. DKA, improved. 6. Renal insufficiency, improved. 7. Community acquired pneumonia with Haemophilus parainfluenzae responding appropriately to antimicrobials. 8. Ulcer and DVT prophylaxis in place. 9. Abnormal troponins with question ST changes. I appreciate the help of Cardiology. At this point, she has been making some weaning progress. We are awaiting bed availability at the [facility] as she clearly warrants catheterization in the very near future. Certainly would be much safer if she was transported intubated and ventilated. We will proceed with weaning her as best we can, but I am told there may be a bed today, and I will hold on pushing the extubation. She has been tolerating her tube feeds. Her glucose is under better control. She remains on Zosyn. Her procalcitonin is mildly elevated, and, therefore, we will continue that as her sputum did grow Haemophilus parainfluenzae. Her troponins did trend down. I appreciate Dr. Pathak's and Dr. Cruz's help. At this point, we will proceed as outlined above. Her hemoglobin is mildly diminished today, and if that continues, we will transfuse her. At this point, she does remain critically ill. Her prognosis is guarded in view of her multisystem dysfunction. I left the bedside at 0905 hours. Thirty-five minutes of critical care time at the bedside not including procedures.
--- NOTE | 2021-02-12 09:56 | IPN ---
PROGRESS NOTE DATE: 02/12/2021 SUBJECTIVE: Mrs. Poole remains in ICU sedated and intubated. There were attempts yesterday to wean her off the ventilatory support that were ultimately unsuccessful. Blood pressure remains relatively soft but she did not require pressure means for blood pressure maintenance. Her urine output also is fairly modest, She made only about 600 mL of urine overnight. No other developments, no arrhythmias detected on telemetry monitoring. This morning her vital signs reveal blood pressure 96/53; has been in similar range throughout the day and night. Heart rate around 90, sinus rhythm. She has been afebrile. Saturation is in the high 90s on 40% FiO2 by a ventilator on 4 of PEEP. Balance yesterday was a liter positive; it was about 1700 mL in and 600 mL out. Weight was not recorded this morning as yet. OBJECTIVE: On exam, she is sedated and does not respond to verbal stimuli but moves to painful stimuli. I did not succeed in making her open her eyes. Pupils though are reactive. Lungs reveal fair air movement and no wheezes; occasional crackle especially over the base. Heart exam reveals somewhat distant heart sounds consistent with her body habitus. [id number] out of 6 systolic ejection murmur best heard over the aortic valve. The second heart sound is basically absent. I do not appreciate a distinct gallop per se. Abdomen is obese but soft. Bowel sounds are present. No obvious guarding. Extremities are free of significant edema and peripheral pulses are detectable. There are no trophic defects in lower extremities. LABORATORY: Her basic metabolic panel remains normal with the exception of glucose 221. Liver function tests are normal. Albumin is 2.6. Her last troponin from yesterday was 0.45, which is trending down. CBC: WBC count 11.5, hemoglobin 8.7, hematocrit 28 and platelet count 200. EKG yesterday and today revealed sinus rhythm with minimal nonspecific repolarization abnormalities. No appreciable trend. ASSESSMENT AND PLAN: Mrs. Poole is a 65-year-old lady who has chronic diabetes, hypertension, morbid obesity who presented with acute respiratory failure and that led to fairly prompt intubation. She was mildly acidotic but it appears that the principal problem is a critical aortic stenosis with resulting congestive heart failure. At this point, she remains intubated and unfortunately the attempts to extubate her so far have been unsuccessful. Her blood pressure is relatively soft and consequently it is difficult to accomplish significant diuresis. Even though her urine output remains relatively low, her renal function remains preserved. The attempts to transfer the patient were not successful due to lack of bed availability. I will contact [facility] again today and see whether we can transfer even when she is intubated. If not, then the attempt to extubate her today will be entertained again. Her troponin is minimally elevated, which I suspect is most likely due to demand ischemia rather than true obstructive coronary artery disease. She has been started on aspirin and high-dose statin. MTDD
[2021-02-12 10:09] LABS: ABG BASE EXCESS -1.7 (-2.0-2.0); ABG HCO3 23.7 MEQ/L (22.0-26.0); ABG O2 SATURATION 94.5 % (95.0-99.0); ABG PARTIAL PRESSURE CO2 43.3 mmHg (35.0-45.0); ABG PARTIAL PRESSURE O2 75.8 mmHg (75.0-100.0); ABG TOTAL CO2 25.1 MEQ/L (23.0-31.0); ABG pH (ARTERIAL) 7.357 UNITS (7.350-7.450)
[2021-02-12] MEDS: ALPRAZolam 0.25 MG TAB NG SCH ×2 (14:23→20:48)
[2021-02-12] MEDS: D5W/0.45% SODIUM CHLORIDE 1,000 ML IV SCH ×2 (16:42→18:30)
[2021-02-12] MEDS: ATORVASTATIN 20 MG TAB NG SCH (20:48)
[2021-02-13] VITALS (36 sets, daily range): BP systolic 90–165; BP diastolic 50–83
[2021-02-13] MEDS: IPRATROPIUM 0.5MG/ALBUTEROL 2.5MG INH SOL UD 3ML (DUONEB) NEB SCH ×7 (00:35→23:13)
[2021-02-13] MEDS: HumaLOG INSULIN (NovoLOG) PER UNIT SC SCH ×4 (00:58→17:29)
[2021-02-13] MEDS: PIPERACILLIN/TAZOBACTAM SOD 3.375 GM in D5W MINI-BAG PLUS 50 ML IV SCH ×4 (02:21→20:08)
[2021-02-13] MEDS: propofoL 1,000 MG in IV 1 EA IV SCH (02:25)
[2021-02-13] MEDS: MIDAZOLAM INJ 2MG/2ML VIAL (J2250 PER 1MG) IV PRN ×3 (04:04→23:04)
[2021-02-13] MEDS: MORPHINE 2 MG/ML 1ML VIAL (J2270) IV PRN ×4 (04:05→23:04)
[2021-02-13 05:19] LABS: BASO % 0.3 % (0.0-1.0); EOS # 0.3 10^3/uL (0.0-0.5); EOS % 2.4 % (0.0-3.0); HEMATOCRIT 27.9 % (36.0-47.0); HEMOGLOBIN 8.7 g/dl (12.0-15.5); LYMPH # 1.3 10^3/uL (1.5-5.0); LYMPH % 12.1 % (24.0-44.0); MEAN CORPUSCULAR HEMOGLOBIN 26.5 pg (27.0-33.0); MEAN CORPUSCULAR HGB CONC 31.2 g/dl (32.0-36.5); MEAN CORPUSCULAR VOLUME 85.1 fl (80.0-96.0); MONO # 0.7 10^3/uL (0.0-0.8); MONO % 6.1 % (2.0-8.0); NEUTROPHILS # 8.5 10^3/uL (1.5-8.5); NEUTROPHILS % 78.7 % (36.0-66.0); PLATELET COUNT, AUTOMATED 189 10^3/uL (150-450); RED BLOOD COUNT 3.28 10^6/uL (4.00-5.40); WHITE BLOOD COUNT 10.8 10^3/uL (4.0-10.0)
[2021-02-13] MEDS: D5W/0.45% SODIUM CHLORIDE 1,000 ML IV SCH (05:24)
[2021-02-13 05:48] LABS: ALBUMIN 2.3 GM/DL (3.2-5.2); ALT/SGPT 16 U/L (12-78); BILIRUBIN,TOTAL 0.5 MG/DL (0.2-1.0); BLOOD UREA NITROGEN 12 MG/DL (7-18); CALCIUM LEVEL 7.6 MG/DL (8.8-10.2); CARBON DIOXIDE LEVEL 26 MEQ/L (21-32); CHLORIDE LEVEL 107 MEQ/L (98-107); CHOLESTEROL LEVEL 154 MG/DL (< 200); CPK CREATINE PHOSPHOKINASE 121 U/L (26-192); CREATININE FOR GFR 0.74 MG/DL (0.55-1.30); GLOMERULAR FILTRATION RATE > 60.0 (>45); GLUCOSE, FASTING 221 MG/DL (70-100); LDH LACTATE DEHYDROGENASE 193 U/L (84-246); PHOSPHORUS LEVEL 2.9 MG/DL (2.5-4.9); POTASSIUM SERUM 4.6 MEQ/L (3.5-5.1); SODIUM LEVEL 138 MEQ/L (136-145); TOTAL PROTEIN 5.1 GM/DL (6.4-8.2); TRIGLYCERIDES LEVEL 132 MG/DL (<150)
[2021-02-13 05:49] LABS: ABG BASE EXCESS -1.4 (-2.0-2.0); ABG HCO3 23.9 MEQ/L (22.0-26.0); ABG O2 SATURATION 98.7 % (95.0-99.0); ABG PARTIAL PRESSURE CO2 42.8 mmHg (35.0-45.0); ABG PARTIAL PRESSURE O2 139.8 mmHg (75.0-100.0); ABG STANDARD HCO3 23.3 MEQ/L (22.0-26.0); ABG TOTAL CO2 25.2 MEQ/L (23.0-31.0); ABG pH (ARTERIAL) 7.365 UNITS (7.350-7.450)
[2021-02-13] MEDS: HEPARIN SOD (PORCINE) 5000UNITS/ML 1ML VIAL/SYRINGE SC SCH ×3 (06:01→22:00)
[2021-02-13] MEDS: MIDAZOLAM HCL 100 MG in D5W 80 ML IV SCH ×2 (06:55→23:23)
--- NOTE | 2021-02-13 08:09 | REP ---
INDICATION: Resp Failure. COMPARISON: Comparison chest x-ray February 12, 2021. TECHNIQUE: Portable upright AP chest radiograph. FINDINGS: Endotracheal and nasogastric tubes remain in place unchanged. EKG electrodes are seen. Patient is rotated slightly to the left. There is platelike atelectasis in the left base laterally. Some increased markings are seen in the left base medially obscuring the medial portion of the left hemidiaphragm consistent with atelectasis and or effusion. No other focal infiltrate is appreciated. Pulmonary vasculature is cephalized. IMPRESSION: Increased density behind the heart in the left base atelectasis and or effusion. Pulmonary vascular cephalization and congestion. Endotracheal and nasogastric tubes in place. <Electronically signed by Matheus Fontana > 02/13/21 [id number]
[2021-02-13] MEDS: PANTOPRAZOLE 40MG VIAL (C9113 PER 1) IV SCH (08:11)
[2021-02-13] MEDS: CHLORHEXIDINE GLUCONATE 0.12 % 15ML UDC (PERIDEX ORAL RINSE) MT SCH ×2 (08:11→20:08)
[2021-02-13] MEDS: ASPIRIN 325 MG TAB NG SCH (08:12)
[2021-02-13] MEDS: ALPRAZolam 0.25 MG TAB NG SCH ×2 (08:12→20:08)
[2021-02-13] MEDS: methylPREDNISolone 125MG 2ML VIAL IV SCH ×2 (08:57→17:29)
--- NOTE | 2021-02-13 09:33 | CCN ---
CRITICAL CARE NOTE DATE: 02/13/2021 START TIME: 08 STOP TIME: 0850 SUBJECTIVE: I again attended Tamiko Poole. Patient has been examined, chart has been reviewed. I spoke at length with the nurse at the bedside. She required increased sedation again overnight despite having scheduled Xanax. VITAL SIGNS: T-max overnight 97.8, blood pressure 90 to low 100's systolic. Heart rates are in the 70s to 90s with a sinus mechanism. Generally, respiratory rate between 16 and the low 20s depending upon her level of agitation. INPUT AND OUTPUT: Ins and outs midnight to midnight: 2600 ml in with 985 ml out. Most recent laboratories shows a sodium of 138, potassium 4.6, chloride 107, CO2 26, BUN 12, creatinine 0.74, glucose 221. LFTs are all unremarkable, albumin 2.3. White blood cell count 10.8, hemoglobin stable at 8.7, platelet count of 189,000, 70% segs, no bands. Blood gas obtained an SIMV of 6, tidal volume 400, PEEP of 5, pressure support of 10, FIO2 of 30%, pH 7.365, pCO2 of 42, pO2 of 139.8. Chest x-ray shows lines and tubes in good position. Suboptimal inspiratory effort with some mild crowding at the bases. No new culture results. OBJECTIVE: On exam, she is sedate, pupils react. Sclera are clear. Trachea is clear. Trachea is midline. Lungs are fairly clear anteriorly. There are some basilar crackles. No convincing wheeze. Rare rhonchi. No focal adventitious breath sounds are identified. Cardiac exam is distant. Her harsh systolic murmur is unchanged. Peripheral pulses are diminished but palpable. Minimal edema. Abdomen is obese, soft with active bowel sounds, no convincing organomegaly or masses. Extremities without cyanosis or clubbing. Neurologically, she is sedate but moves all extremities when sedation is lightened. She does not generally follow commands. Psychiatric: She is sedate. The most pressing problems requiring my presence at bedside: 1. Respiratory failure, multifactorial. 2. Aortic stenosis, severe. 3. DKA. 4. Diabetes mellitus. 5. Longstanding tobacco history with reported obstructive lung disease. 6. Haemophilus parainfluenza pneumonia. I had an extensive phone conversation with her and son yesterday. Apparently, the number on the chart was incorrect and that is why were unable to get a hold of them. They report an extensive smoking history. They also report that her primary aircraft magneto mechanic, Dr. Rodríguez, has told her within the last several weeks that at some point she is going to need her valve replaced. In view of the above, regarding her tobacco history, I will add IV steroids. Certainly, this will negatively impact her glucose control and that will be addressed accordingly. She remains on ulcer and DVT prophylaxis. She remains on enteral nutrition. There are no beds available either at [facility] in [place], [facility] or [facility] in [place]. We will continue to try to do the best we can to get her appropriate transfer for valve replacement. In the interim, we will continue to maximize her treatment. She will remain on IV antibiotics for her haemophilus parainfluenza. I will continue to wean her as able and my suspicion is that when she gets close we can extubate her to noninvasive support. For now, will keep her at maintenance fluid. I have not added diuretics at this point. We appreciate the help from Cardiology. Overall, with the multiorgan dysfunction and the severe nature of her aortic stenosis, her prognosis remains guarded. I left the bedside at 0850 hours. Thirty-five minutes of critical care time at the bedside not including procedures.
--- NOTE | 2021-02-13 10:06 | IPN ---
PROGRESS NOTE DATE: 02/13/2021 SUBJECTIVE: Mrs. Poole's condition remains approximately the same. She remains sedated and intubated and attempts to wean her off the ventilator so far have been unsuccessful. There are no arrhythmias though, and she continues to make urine; and even though her blood pressure is relatively soft, she is not truly hypotensive. Yesterday, I had numerous phone calls trying to transfer her to other institutions. First of all, after some difficulty I was able to get in touch with her . He was already well aware of her condition and he is fully supportive of transfer to a facility that can handle her aortic valve. I contacted [facility] in [place] and was informed that there is very little likelihood that they will be able to get her a bed any time soon. Then, Dr. Kearney made a contact with [facility] on [address] where the patient's son apparently lives. I was able to talk to people from cardiac surgery and then from intervention cardiology. They felt that the patient was appropriate for their institution but currently did not have any beds available either. They informed me that they will put her on a waiting list but could not tell me what time horizon are we talking. OBJECTIVE: Vital signs this morning: Blood pressure is 93/50. Heart rate has been in mostly the 70s. She is afebrile. Saturation is 96% to 97% on 30% FiO2. Her fluid balance yesterday was recorded positive 1600. She made about a liter of urine. Weight has not been recorded yet. She is sedated; would not respond to verbal stimuli. Moves extremities to painful stimulation. Pupils are round and equal. No jugular venous pressure (JVP) that I can assess but with her body habitus it is somewhat challenging. Lungs are relatively clear; no wheezes; occasional crackle at the base. Heart exam revealed regular rhythm. There is about a 3/6 intensity murmur. No closing sound. I do not appreciate gallop but, again, distant heart sounds due to body habitus. Abdomen is somewhat protuberant but soft and nontender. Extremities have trace edema. Peripheral pulses are still palpable. LABORATORIES: Basic metabolic panel is normal with the exception of glucose of 221. Albumin is 2.3. CBC: WBC 10.8, hemoglobin 8.7, hematocrit 27.8 and platelet count 189,000. ASSESSMENT AND PLAN: Mrs. Poole is a 65-year-old lady who presented with respiratory failure and was found to have critical aortic stenosis. Unfortunately, the attempts to extubate her so far have been unsuccessful. Her blood pressure remains soft and consequently is challenging to accomplish but respiratory compensation I suspect that without the PEEP she rapidly deteiorates. At this point, I do believe that it is best to transfer patient for probably alveoloplasty to bide time for more definite for more a definite solution of her aortic stenosis. Unfortunately, we have not been able to find a hospital that would accept the patient. We will continue efforts. She is on the waiting list in two facilities but so far no definite date was set up. Otherwise, I do not have any further recommendation to immediate management.
--- NOTE | 2021-02-13 10:38 | REP ---
INDICATION: Altered mental status. COMPARISON: Comparison CT study February 17, 2007. TECHNIQUE: Helical scanning is acquired. 5 mm axial images were reformatted. Coronal MPR images were generated. FINDINGS: Preliminary digital cruise staff member radiograph demonstrates manny tracheal tube a. there is dental amalgam. The bony calvarium is intact on bone window settings. No intraorbital abnormality is seen. There is a troublesome artifact from the dental amalgam coursing through the posterior portion and the inferior portion of the posterior cranial fossa. Fourth ventricle is in the midline. No posterior fossa pathology is appreciated but the posterior aspect and inferior aspect of the cerebellar hemispheres are obscured. The 3rd and 4th ventricles are normal in size and position. Garcia-white differentiation pattern is normal above the tentorium. There is no evidence of infarct or hemorrhage. No extra-axial fluid collection is seen. No mass or mass effect is appreciated. IMPRESSION: Wadsworth artifact obscures a portion of the posterior fossa as discussed above. No acute intracranial abnormality is appreciated. The above findings were relayed verbally to Dr. Kearney at the time of the dictation.. <Electronically signed by Matheus Fontana > 02/13/21 [id number]
[2021-02-13] MEDS: ATORVASTATIN 20 MG TAB NG SCH (20:08)
[2021-02-14] VITALS (24 sets, daily range): BP systolic 89–156; BP diastolic 49–76
[2021-02-14] MEDS: methylPREDNISolone 125MG 2ML VIAL IV SCH ×3 (00:52→16:27)
[2021-02-14] MEDS: HumaLOG INSULIN (NovoLOG) PER UNIT SC SCH ×5 (00:52→23:53)
[2021-02-14] MEDS: PIPERACILLIN/TAZOBACTAM SOD 3.375 GM in D5W MINI-BAG PLUS 50 ML IV SCH ×4 (01:16→19:51)
[2021-02-14] MEDS: MORPHINE 2 MG/ML 1ML VIAL (J2270) IV PRN ×6 (02:53→15:59)
[2021-02-14] MEDS: MIDAZOLAM INJ 2MG/2ML VIAL (J2250 PER 1MG) IV PRN ×11 (02:53→22:59)
[2021-02-14] MEDS: IPRATROPIUM 0.5MG/ALBUTEROL 2.5MG INH SOL UD 3ML (DUONEB) NEB SCH ×4 (04:00→19:21)
[2021-02-14] MEDS: D5W/0.45% SODIUM CHLORIDE 1,000 ML IV SCH (04:48)
[2021-02-14 05:21] LABS: BASO % 0.1 % (0.0-1.0); HEMOGLOBIN 9.1 g/dl (12.0-15.5); LYMPH # 0.6 10^3/uL (1.5-5.0); MEAN CORPUSCULAR HEMOGLOBIN 26.5 pg (27.0-33.0); MEAN CORPUSCULAR HGB CONC 31.4 g/dl (32.0-36.5); MEAN CORPUSCULAR VOLUME 84.5 fl (80.0-96.0); MONO # 0.3 10^3/uL (0.0-0.8); MONO % 2.2 % (2.0-8.0); NEUTROPHILS # 11.4 10^3/uL (1.5-8.5); NEUTROPHILS % 91.5 % (36.0-66.0); PLATELET COUNT, AUTOMATED 189 10^3/uL (150-450); RED BLOOD COUNT 3.43 10^6/uL (4.00-5.40); WHITE BLOOD COUNT 12.5 10^3/uL (4.0-10.0)
[2021-02-14 05:49] LABS: ALBUMIN 2.3 GM/DL (3.2-5.2); ALT/SGPT 21 U/L (12-78); BILIRUBIN,TOTAL 0.4 MG/DL (0.2-1.0); BLOOD UREA NITROGEN 16 MG/DL (7-18); CALCIUM LEVEL 8.4 MG/DL (8.8-10.2); CARBON DIOXIDE LEVEL 28 MEQ/L (21-32); CHLORIDE LEVEL 107 MEQ/L (98-107); CHOLESTEROL LEVEL 190 MG/DL (< 200); CPK CREATINE PHOSPHOKINASE 90 U/L (26-192); CREATININE FOR GFR 0.79 MG/DL (0.55-1.30); GLOMERULAR FILTRATION RATE > 60.0 (>45); GLUCOSE, FASTING 335 MG/DL (70-100); LDH LACTATE DEHYDROGENASE 283 U/L (84-246); PHOSPHORUS LEVEL 2.8 MG/DL (2.5-4.9); POTASSIUM SERUM 4.6 MEQ/L (3.5-5.1); SODIUM LEVEL 140 MEQ/L (136-145); TOTAL PROTEIN 5.3 GM/DL (6.4-8.2); TRIGLYCERIDES LEVEL 122 MG/DL (<150)
[2021-02-14 06:25] LABS: ABG BASE EXCESS 0.5 (-2.0-2.0); ABG HCO3 25.7 MEQ/L (22.0-26.0); ABG O2 SATURATION 97.6 % (95.0-99.0); ABG PARTIAL PRESSURE CO2 43.5 mmHg (35.0-45.0); ABG PARTIAL PRESSURE O2 107.8 mmHg (75.0-100.0); ABG pH (ARTERIAL) 7.389 UNITS (7.350-7.450)
[2021-02-14] MEDS: HEPARIN SOD (PORCINE) 5000UNITS/ML 1ML VIAL/SYRINGE SC SCH ×3 (06:28→21:39)
[2021-02-14] MEDS: ASPIRIN 325 MG TAB NG SCH (08:40)
[2021-02-14] MEDS: CHLORHEXIDINE GLUCONATE 0.12 % 15ML UDC (PERIDEX ORAL RINSE) MT SCH ×2 (08:40→21:39)
[2021-02-14] MEDS: ALPRAZolam 0.25 MG TAB NG SCH ×2 (08:40→21:39)
[2021-02-14] MEDS: PANTOPRAZOLE 40MG VIAL (C9113 PER 1) IV SCH (08:41)
--- NOTE | 2021-02-14 08:46 | REP ---
INDICATION: Resp Failure. COMPARISON: Multiple the latest yesterday TECHNIQUE: Portable FINDINGS: The technique utilized in obtaining the radiograph has magnified the cardiac silhouette and accentuated the interstitial markings. There is no significant change in appearance of the nasogastric tube or endotracheal tube. There is no significant change in appearance of the lung bynum. A left retrocardiac opacity is again noted with evidence of air bronchograms. Once again, there is central pulmonary venous engorgement status quo. Overlying soft tissue artifact obscures the right lung base. IMPRESSION: No significant change with findings as described above. <Electronically signed by Chad Bran > 02/14/21 [id number]
[2021-02-14 10:20] LABS: ABG HCO3 21.9 MEQ/L (22.0-26.0); ABG PARTIAL PRESSURE CO2 38.2 mmHg (35.0-45.0); ABG PARTIAL PRESSURE O2 70.6 mmHg (75.0-100.0); ABG STANDARD HCO3 21.9 MEQ/L (22.0-26.0); ABG TOTAL CO2 23.1 MEQ/L (23.0-31.0); ABG pH (ARTERIAL) 7.376 UNITS (7.350-7.450)
--- NOTE | 2021-02-14 10:52 | CCN ---
CRITICAL CARE NOTE DATE: 02/14/2021 START TIME: 909. STOP TIME: 953. SUBJECTIVE: I again attended Tamiko Poole here in the intensive care unit. Patient has been examined, chart reviewed. I spoke at length with the nurse at the bedside as well as lengthy conversation with her by phone this morning. VITAL SIGNS: T-max overnight 98.6, blood pressure 104 to 140s. Heart rate generally 80s to 90s. Respiratory rate 15 to 22. She does have some accessory muscle use when her sedation is lightened. Ins and outs midnight to midnight: 2090 ml in with 1890 ml out. Most recent blood gas obtained SIMV of 6, tidal volume 450, PEEP 5, pressure support of 15, FiO2 30%, pH 7.389, pCO2 43.5, pO2 107.8. White blood cell count 12.5, she is on Solu-Medrol, hemoglobin 9.1, platelet count 189,000, 91.5% segs, no bands. Sodium 140, potassium 4.6, chloride 107, CO2 28, BUN 16, creatinine 0.79, glucose 335. LDH mildly elevated at 283. Troponin yesterday 0.64, repeat pending. No new culture results. She remains on Zosyn. OBJECTIVE: On exam, she is sedate but is arousable. Markedly anxious when aroused and becomes markedly tachypnea and bronchospastic. Pupils react. Sclerae are clear. Trachea is midline. Chest when sedated is clear anteriorly with equally symmetric breath sounds and expansion. No convincing rhonchus or rubs unless her sedation is lightened. Cardiac exam is distant, generally regular. Her aortic stenosis murmur is unchanged. Peripheral pulses are diminished but palpable, minimal edema. Abdomen is morbidly obese, soft, active bowel sounds. Extremities without cyanosis or clubbing. Neurologically, she is sedate but moves all extremities. Psychiatric exam shows her to be anxious when sedation lightened. CT scan of the head done yesterday shows no acute intracranial abnormalities. Significant motion artifact obscures portion of the posterior fossa. I spoke with the radiologist at the time of her study. Chest x-ray today shows no acute findings. The most pressing problems requiring my presence at bedside: 1. Respiratory failure requiring mechanical ventilatory support. 2. Lactic acidosis, cleared. 3. Elevated troponin. 4. Aortic stenosis, severe. 5. Diabetes mellitus with DKA, resolved. 6. Advanced obstructive lung disease by history with both tobacco as well as nicotine-containing vaping history. At this point we will continue to wean her as tolerated but the minute we lighten her sedation she becomes agitated and bronchospastic. I have discussed this at length with her . The goal still is to try to get her transferred for cardiac surgery but at this point [facility] is essentially in state of crisis regarding healthcare and bed availability. We will continue to wean her as able. I did discuss with him that should she go another 4-5 days we may consider tracheostomy at least as a temporary move to facilitate her weaning. In the interim, she will continue on IV steroids, nebulized bronchodilators and antibiotics for haemophilus parainfluenza pneumonitis. Sugars are generally under control. She is tolerating her tube feeds. They are somewhat exacerbated by her steroids and she is on insulin coverage. She remains on ulcer and DVT prophylaxis. I appreciate the help of cardiology. We will check another troponin today. At this point she does remain critically ill. I left the bedside at 0954 hours. Will try her on pressure support mode and check blood gas in an hour. We await the outcome of that. A total of 44 minutes of critical care time at the bedside not including procedures. KIANNA
[2021-02-14] MEDS ORDERED: BISACODYL 10 MG SUPP PR PRN (11:25)
[2021-02-14] MEDS: MIDAZOLAM HCL 100 MG in D5W 80 ML IV SCH ×2 (16:28→22:00)
[2021-02-14 17:55] LABS: ABG BASE EXCESS 0.4 (-2.0-2.0); ABG HCO3 25.6 MEQ/L (22.0-26.0); ABG O2 SATURATION 89.9 % (95.0-99.0); ABG PARTIAL PRESSURE CO2 43.8 mmHg (35.0-45.0); ABG PARTIAL PRESSURE O2 59.6 mmHg (75.0-100.0); ABG STANDARD HCO3 24.7 MEQ/L (22.0-26.0); ABG pH (ARTERIAL) 7.385 UNITS (7.350-7.450)
[2021-02-14] MEDS ORDERED: fentaNYL CITRATE 1,000 MCG in NS 80 ML IV SCH (18:00)
[2021-02-14] MEDS: ATORVASTATIN 20 MG TAB NG SCH (21:39)
[2021-02-14] MEDS ORDERED: METOCLOPRAMIDE INJ 10MG/2ML VIAL (J2765 PER 1) IV SCH (22:00)
[2021-02-14] MEDS: METOCLOPRAMIDE HCL LIQUID 10 MG/10 ML UDC GT SCH (22:44)
--- NOTE | 2021-02-14 23:53 | REPVR ---
PROCEDURE INFORMATION: Exam: XR Abdomen Exam date and time: 02/14/2021 10:11 PM Age: 65 years old Clinical indication: Abdominal tenderness; Additional info: ? Ileus TECHNIQUE: Imaging protocol: XR of the abdomen. Views: Frontal supine view of the abdomen. 1 View. COMPARISON: CT ABD/PEL W/IV CONTRAST ONLY 10/13/2020 7:35 AM FINDINGS: Tubes, catheters and devices: NG tube extending into the gastric body. Gastrointestinal tract: Mild gas with borderline gas distention of the stomach. Some gas is noted in the colon. No colonic distention or small bowel distention is noted. Bones/joints: Unremarkable. Soft tissues: There are moderately generous overlying soft tissues. IMPRESSION: 1. Borderline gas distention of the stomach despite an NG tube in position which may reflect outlet obstruction or gastric atony. NG tube malfunction may be a consideration. 2. Mild gas overall without additional bowel distention. Electronically signed by: Ronald Begum On 02/14/2021 23:52:59 PM
[2021-02-15] VITALS (19 sets, daily range): BP systolic 89–152; BP diastolic 51–81
[2021-02-15] MEDS: IPRATROPIUM 0.5MG/ALBUTEROL 2.5MG INH SOL UD 3ML (DUONEB) NEB SCH ×6 (00:47→18:30)
[2021-02-15] MEDS: methylPREDNISolone 125MG 2ML VIAL IV SCH ×3 (02:08→20:18)
[2021-02-15] MEDS: MIDAZOLAM INJ 2MG/2ML VIAL (J2250 PER 1MG) IV PRN ×2 (02:09→03:30)
[2021-02-15] MEDS: PIPERACILLIN/TAZOBACTAM SOD 3.375 GM in D5W MINI-BAG PLUS 50 ML IV SCH ×4 (02:45→20:17)
[2021-02-15 04:46] LABS: HEMATOCRIT 30.6 % (36.0-47.0); HEMOGLOBIN 9.2 g/dl (12.0-15.5); MEAN CORPUSCULAR HEMOGLOBIN 26.6 pg (27.0-33.0); MEAN CORPUSCULAR HGB CONC 30.1 g/dl (32.0-36.5); MEAN CORPUSCULAR VOLUME 88.4 fl (80.0-96.0); PLATELET COUNT, AUTOMATED 222 10^3/uL (150-450); RED BLOOD COUNT 3.46 10^6/uL (4.00-5.40); WHITE BLOOD COUNT 18.3 10^3/uL (4.0-10.0)
[2021-02-15 05:13] LABS: BLOOD UREA NITROGEN 27 MG/DL (7-18); CALCIUM LEVEL 8.4 MG/DL (8.8-10.2); CARBON DIOXIDE LEVEL 26 MEQ/L (21-32); CHLORIDE LEVEL 107 MEQ/L (98-107); CREATININE FOR GFR 0.86 MG/DL (0.55-1.30); GLOMERULAR FILTRATION RATE > 60.0 (>45); GLUCOSE, FASTING 329 MG/DL (70-100); POTASSIUM SERUM 4.4 MEQ/L (3.5-5.1); SODIUM LEVEL 141 MEQ/L (136-145)
[2021-02-15] MEDS: HEPARIN SOD (PORCINE) 5000UNITS/ML 1ML VIAL/SYRINGE SC SCH ×2 (05:40→14:28)
[2021-02-15] MEDS: METOCLOPRAMIDE HCL LIQUID 10 MG/10 ML UDC GT SCH (05:40)
[2021-02-15] MEDS: HumaLOG INSULIN (NovoLOG) PER UNIT SC SCH ×2 (05:41→17:09)
[2021-02-15] MEDS: dexmedeTOMidine 200 MCG in IV 1 EA IV SCH ×2 (05:47→09:57)
[2021-02-15 05:48] LABS: ABG BASE EXCESS -0.7 (-2.0-2.0); ABG O2 SATURATION 97.9 % (95.0-99.0); ABG PARTIAL PRESSURE CO2 39.3 mmHg (35.0-45.0); ABG PARTIAL PRESSURE O2 108.1 mmHg (75.0-100.0); ABG STANDARD HCO3 23.9 MEQ/L (22.0-26.0); ABG TOTAL CO2 25.2 MEQ/L (23.0-31.0); ABG pH (ARTERIAL) 7.403 UNITS (7.350-7.450)
--- NOTE | 2021-02-15 06:49 | IPN ---
PROGRESS NOTE DATE: 02/14/2021 SUBJECTIVE: I rounded on patient early this morning. Unfortunately, her condition did not appreciably change since yesterday. Dr. Kearney attempted aggressive weaning of the ventilator yesterday but unfortunately anytime sedation is released, the patient develops bronchospasm and becomes very agitated so the attempt was ultimately unsuccessful. Otherwise, she remains sedated and intubated. Her blood pressure remains acceptable and she did not have any significant arrhythmias. OBJECTIVE: VITAL SIGNS: This morning blood pressure is 104/53, heart rate is 80, respiratory rate 18, saturation 97% on 40% FIO2. INPUT AND OUTPUT: Her fluid balance yesterday was approximately equal, weight was recorded as 97.1 kg today. GENERAL: She was sedated and not responding to verbal stimuli. NECK: JVP is difficult to safe and vault installer with body habitus but does not appear grossly elevated. LUNGS: Reasonably clear. Good air movement. No wheezing, no rhonchi. HEART: Regular rhythm with harsh systolic ejection murmur. No robin gallop but totally absent second aortic heart sound. ABDOMEN: Obese but soft. EXTREMITIES: Trace edema. NEUROLOGIC: Exam is limited by sedation. LABORATORY DATA: WBC is 12.5, hemoglobin is 9.1, hematocrit 29, platelet count is 187,000. Basic metabolic panel normal, blood glucose 335, normal liver function tests. Troponin 0.25. Albumin 2.3. Chest x-ray does not reveal any significant change, very likely a component of congestive heart failure. ASSESSMENT AND PLAN: Mrs. Poole is a 65-year-old female with diabetes, hypertension, and dyslipidemia, and morbid obesity who presented with acute respiratory failure likely principally due to critical aortic stenosis. So far, her blood pressure has been soft and consequently very tenuous for potential diuresis. Any attempts to wean her off the ventilator so far have been meant with bronchospasm and agitation and we have been unsuccessful. I suspect that with release of sedation the work of breathing remains very high and patient becomes rapidly agitated. We are basically waiting for a facility that has the capacity to perform aortic valvuloplasty for patient to be transferred. Numerous facilities were contacted and so far she is on a waiting list at both [facility] and also at [facility] in [place]. I had a discussion with Dr. Kearney yesterday and he will widen the scope of contacted facilities. Unfortunately, I do not believe there is much that I can contribute in her current situation and hopefully the transfer will occur in the near future.
--- NOTE | 2021-02-15 08:06 | REP ---
INDICATION: Resp Failure. COMPARISON: Comparison chest x-ray February 14, 2021. TECHNIQUE: Portable upright AP chest radiograph. FINDINGS: Endotracheal and nasogastric tubes remain in good position. EKG electrodes are seen. Increased density persists at the bases. There is suggestion of bilateral pleural effusion. Some vascular congestion. No new infiltrate. IMPRESSION: Small effusions and bibasilar increased parenchymal opacities. Vascular congestion. <Electronically signed by Matheus Fontana > 02/15/21 0802
[2021-02-15] MEDS: PANTOPRAZOLE 40MG VIAL (C9113 PER 1) IV SCH (08:28)
[2021-02-15] MEDS: ASPIRIN 325 MG TAB NG SCH (08:28)
[2021-02-15] MEDS: CHLORHEXIDINE GLUCONATE 0.12 % 15ML UDC (PERIDEX ORAL RINSE) MT SCH (08:28)
[2021-02-15] MEDS ORDERED: INSULIN IV RATE CHANGE DOCUMENTATION ML/HR XX SCH (08:45)
[2021-02-15] MEDS ORDERED: INSULIN REGULAR IN 0.9 % NACL 100 UNIT in IV 1 EA IV SCH ×2 (08:45)
[2021-02-15] MEDS ORDERED: LACTULOSE 20 GM/30 ML SYRUP UD NG SCH (09:00)
[2021-02-15] MEDS ORDERED: clonazePAM 0.5 MG TAB NG SCH (09:00)
[2021-02-15] MEDS: SENNA 8.6 MG TAB (SENOKOT) NG SCH ×2 (09:46→20:17)
--- NOTE | 2021-02-15 10:07 | IPNPDOC ---
Subjective Date Seen The patient was seen on 02/15/21. Subjective Chief Complaint/HPI Patient remains on the ventilator. Patient is on minimal vent settings. There were no overnight events other than that she had mildly high gastric residuals in the 200s. She was given Reglan. She is currently on fentanyl drip, Versed drip, Precedex. Fentanyl and Versed are being titrated off in anticipation of an awakening trial and SBT this morning. General: Reports: ROS Unobtainable (As patient is intubated unable to obtain ROS) Objective Physical Examination General Exam: Positive: Other (Sedated) Eye Exam: Positive: PERRLA ENT Exam: Positive: Atraumatic, Mucous membr. moist/pink (ET tube in place) Neck Exam: Positive: Supple Chest Exam: Positive: Normal air movement (Faint expiratory wheeze bilateral) Heart Exam: Positive: Rate Normal (Systolic ejection murmur), Regular Rhythm Abdomen Exam: Positive: Normal bowel sounds (Nontender nondistended) Female Exam: Positive: Nl Ext Genitalia (Bateman in place) Extremity Exam: Positive: Normal pulses; Negative: Clubbing, Cyanosis, Edema Skin Exam: Positive: Nl turgor and temperature; Negative: Rash, Breakdown Neuro Exam: Positive: Other (Sedated, arousable to noxious stimuli) RAD Interpretation STUDY: Assessment /Plan Assessment Chest x-ray from this morning shows bilateral interstitial opacities and bibasi lar opacities, ET tube is high, NG tube is below the diaphragm. KUB from last night shows borderline gas distention of the stomach. IMPRESSION: The most critical problems requiring my immediate presence at bedside are: 1. Acute respiratory failure requiring mechanical ventilatory support 2. Diabetes mellitus with DKA, resolved 3. Severe aortic stenosis 4. COPD by history with both tobacco use as well as nicotine-containing vaping history 5. Lactic acidosis cleared 6. Community-acquired pneumonia Haemophilus in the sputum PLAN: PRODUCTION SUPPORT CONSULTANT: Spontaneous awakening trial. Start Precedex, titrate off Versed and fentanyl. DC Xanax, start Klonopin 0.25 mg every 12 prn. PULM: HOB 30 degrees. Maintain Sp02 94-98%. Titrate off oxygen as tolerated. FiO2 to 40% no other vent changes. If tolerates SAT will do SBT. Repeat chest x-ray after ET tube advancement. Reduce Solu-Medrol to 60 every 12 and continue bronchodilators [id number]. Lung ultrasound did not reveal any effusions it was suggestive of bibasilar atelectasis. CARDIO: Maintain MAPs 60-65. Continue aspirin 325, continue Lipitor, if tolerates SBT will give Lasix 40 mg IV x1 prior to extubation as she has positive fluid balance over the last 24 hours GI: Bowel regimen while on opiates. Start senna and lactulose, there has been no BM documented over the last week, KUB did not reveal obstructive gas pattern. Hold feeds for SBT. Continue Reglan and check EKG for QTC. RENAL: Continue with Bateman catheter. ID: Complete course of Zosyn today is day 7 would DC tomorrow. ENDO: Monitor FS per routine. Goal range 140-180. Start nurse driven insulin drip protocol HEME: DVT prophylaxis. LINES/CATHETERS: Bateman catheter in place no central lines just peripheral IVs. DVT/GI PPX CODE STATUS: Full code. DISPOSITION: Keep in medical ICU for now, patient is set up for transfer to a cardiac facility that can perform aortic valve replacement/repair however there are no beds available at this time. A total of 50 minutes of critical care time was spent at the bedside, not including procedures. Plan/VTE VTE Prophylaxis Ordered?: Yes VS, I&O, 24H, Fishbone Vital Signs/I&O Vital Signs Date Time Temp Pulse Resp B/P (MAP) Pulse Ox O2 Delivery O2 Flow Rate FiO2 02/15/21 07:22 86 19 97 50 02/15/21 06:00 141/73 (100) Ventilator 02/15/21 04:00 97.9 02/12/21 14:51 95.0 I&O- Last 24 Hours up to 6 AM 02/15/21 06:00 Intake Total 1884.5 ml Output Total 1065 ml Balance 819.5 ml Laboratory Data 24H LABS Laboratory Tests 2 02/14/21 10:11: Blood Gas Bicarbonate Standard 21.9L, Arterial Blood pH 7.376, Arterial Blood Partial Pressure CO2 38.2, Arterial Blood Partial Pressure O2 70.6L, Arterial Bl ood Total CO2 23.1, Arterial Blood HCO3 21.9L, Arterial Blood Base Excess -3.0L, Arterial Blood Oxygen Saturation 94.0L 02/14/21 11:27: Bedside Glucose (Misc Panel) 300H 02/14/21 15:30: Troponin I 0.25#H 02/14/21 17:38: Bedside Glucose (Misc Panel) 332H 02/14/21 17:45: Blood Gas Bicarbonate Standard 24.7, Arterial Blood pH 7.385, Arterial Blood Partial Pressure CO2 43.8, Arterial Blood Partial Pressure O2 59.6L, Arterial Blood Total CO2 27.0, Arterial Blood HCO3 25.6, Arterial Blood Base Excess 0.4, Arterial Blood Oxygen Saturation 89.9L 02/14/21 23:51: Bedside Glucose (Misc Panel) 356H 02/15/21 04:37: Nucleated Red Blood Cells % (auto) 0.0, Anion Gap 8, Glomerular Filtration Rate > 60.0, Calcium Level 8.4L 02/15/21 05:30: Bedside Glucose (Misc Panel) 328H 02/15/21 05:37: Blood Gas Bicarbonate Standard 23.9, Arterial Blood pH 7.403, Arterial Blood Partial Pressure CO2 39.3, Arterial Blood Partial Pressure O2 108.1H, Arterial Blood Total CO2 25.2, Arterial Blood HCO3 24.0, Arterial Blood Base Excess -0.7, Arterial Blood Oxygen Saturation 97.9 CBC/BMP Laboratory Tests 02/15/21 04:37 Microbiology Microbiology 02/09/21 Gram Stain - Final, Complete 02/09/21 Sputum Culture - Final, Complete Haemophilus Parainfluenzae 02/09/21 Blood Culture - Final, Complete NO GROWTH AFTER 5 DAYS 02/09/21 Respiratory Virus Panel (PCR) (MARKO) - Final, Complete 02/09/21 Blood Culture - Final, Complete NO GROWTH AFTER 5 DAYS BONITA HOWELL MD Feb 15, 2021 09:52
[2021-02-15 12:08] LABS: PHOSPHORUS LEVEL 2.2 MG/DL (2.5-4.9)
[2021-02-15] MEDS ORDERED: GLUCAGON INJ 1MG VIAL SC PRN (13:05)
[2021-02-15] MEDS ORDERED: GLUCOSE 4GM CHEW TABLET PO PRN (13:05)
[2021-02-15] MEDS ORDERED: DEXTROSE 50% 50 ML SYRINGE IV PRN (13:05)
[2021-02-15] MEDS ORDERED: HumuLIN N INSULIN (NovoLIN N) PER UNIT SC SCH (17:30)
[2021-02-15] MEDS ORDERED: FUROSEMIDE 20MG/2ML VIAL (J1940) IV ONE (19:05)
[2021-02-15 19:27] LABS: ABG BASE EXCESS 2.1 (-2.0-2.0); ABG O2 SATURATION 94.8 % (95.0-99.0); ABG PARTIAL PRESSURE CO2 43.3 mmHg (35.0-45.0); ABG PARTIAL PRESSURE O2 78.1 mmHg (75.0-100.0); ABG STANDARD HCO3 26.3 MEQ/L (22.0-26.0); ABG TOTAL CO2 28.3 MEQ/L (23.0-31.0); ABG pH (ARTERIAL) 7.412 UNITS (7.350-7.450)
[2021-02-15] MEDS ORDERED: LEVALBUTEROL 1.25 MG/0.5 ML CONCENTRATE NEB INH PRN (19:30)
--- NOTE | 2021-02-15 20:00 | REP ---
INDICATION: increase SOB. 7:26 p.m. radiograph. COMPARISON: Comparison is made with February 15, 2021 7:15 a.m. film. TECHNIQUE: Portable upright AP chest radiograph. FINDINGS: In the interval since the prior exam, the endotracheal and nasogastric tubes have been withdrawn. EKG electrodes are seen. Aeration in the lung bases is improved although there are increased interstitial markings in the lung bynum diffusely. No robin pleural effusion is seen. There is some fissural thickening in the minor fissure. Mild vascular congestion. IMPRESSION: Endotracheal and nasogastric tubes withdrawn. Improved aeration in the bases. Diffusely increased vascular and interstitial markings. <Electronically signed by Matheus Fontana > 02/15/211956
[2021-02-15] MEDS: ATORVASTATIN 20 MG TAB NG SCH (20:17)
[2021-02-15] MEDS: METOPROLOL TART 25 MG TABLET PO SCH (20:18)
[2021-02-15] MEDS ORDERED: CLOPIDOGREL 300 MG TAB (PLAVIX) PO STA (21:09)
[2021-02-15] MEDS: ENOXAPARIN 100MG/1ML SYRINGE (J1650 PER 10MG) SC SCH (21:38)
[2021-02-15] MEDS ORDERED: clonazePAM 0.5 MG TAB NG PRN (22:00)
[2021-02-16] VITALS (11 sets, daily range): BP systolic 126–166; BP diastolic 65–85
[2021-02-16] MEDS: IPRATROPIUM 0.5MG/ALBUTEROL 2.5MG INH SOL UD 3ML (DUONEB) NEB SCH ×3 (01:04→14:32)
[2021-02-16] MEDS: PIPERACILLIN/TAZOBACTAM SOD 3.375 GM in D5W MINI-BAG PLUS 50 ML IV SCH (02:01)
[2021-02-16] MEDS ORDERED: dexmedeTOMidine 200 MCG in IV 1 EA IV SCH (02:40)
[2021-02-16] MEDS ORDERED: clonazePAM 0.5 MG TAB PO ONE (02:40)
[2021-02-16 05:15] LABS: HEMATOCRIT 31.3 % (36.0-47.0); HEMOGLOBIN 9.7 g/dl (12.0-15.5); MEAN CORPUSCULAR HEMOGLOBIN 26.4 pg (27.0-33.0); MEAN CORPUSCULAR VOLUME 85.1 fl (80.0-96.0); PLATELET COUNT, AUTOMATED 269 10^3/uL (150-450); RED BLOOD COUNT 3.68 10^6/uL (4.00-5.40); WHITE BLOOD COUNT 20.6 10^3/uL (4.0-10.0)
[2021-02-16 05:36] LABS: BLOOD UREA NITROGEN 32 MG/DL (7-18); CALCIUM LEVEL 8.7 MG/DL (8.8-10.2); CARBON DIOXIDE LEVEL 33 MEQ/L (21-32); CHLORIDE LEVEL 105 MEQ/L (98-107); CREATININE FOR GFR 0.83 MG/DL (0.55-1.30); GLOMERULAR FILTRATION RATE > 60.0 (>45); GLUCOSE, FASTING 316 MG/DL (70-100); POTASSIUM SERUM 4.4 MEQ/L (3.5-5.1); SODIUM LEVEL 141 MEQ/L (136-145)
[2021-02-16] MEDS ORDERED: LACTULOSE 20 GM/30 ML SYRUP UD PO SCH (06:00)
[2021-02-16 06:26] LABS: ABG BASE EXCESS 2.4 (-2.0-2.0); ABG HCO3 27.1 MEQ/L (22.0-26.0); ABG O2 SATURATION 96.9 % (95.0-99.0); ABG PARTIAL PRESSURE CO2 42.6 mmHg (35.0-45.0); ABG PARTIAL PRESSURE O2 93.4 mmHg (75.0-100.0); ABG STANDARD HCO3 26.6 MEQ/L (22.0-26.0); ABG TOTAL CO2 28.4 MEQ/L (23.0-31.0); ABG pH (ARTERIAL) 7.422 UNITS (7.350-7.450)
[2021-02-16] MEDS: HumaLOG INSULIN (NovoLOG) PER UNIT SC SCH ×3 (07:30→17:30)
[2021-02-16] MEDS ORDERED: clonazePAM 0.5 MG TAB PO PRN (08:35)
[2021-02-16] MEDS ORDERED: MORPHINE 2 MG/ML 1ML VIAL (J2270) IV PRN (08:35)
[2021-02-16] MEDS: METOPROLOL TART 25 MG TABLET PO SCH (08:42)
[2021-02-16] MEDS: SENNA 8.6 MG TAB (SENOKOT) NG SCH (08:42)
[2021-02-16] MEDS: ASPIRIN 325 MG TAB NG SCH (08:42)
[2021-02-16] MEDS: PANTOPRAZOLE 40MG VIAL (C9113 PER 1) IV SCH (08:44)
[2021-02-16] MEDS: ENOXAPARIN 100MG/1ML SYRINGE (J1650 PER 10MG) SC SCH (08:44)
[2021-02-16] MEDS: methylPREDNISolone 125MG 2ML VIAL IV SCH (08:44)
[2021-02-16] MEDS: HumuLIN N INSULIN (NovoLIN N) PER UNIT SC SCH ×2 (08:52→17:30)
[2021-02-16] MEDS ORDERED: CLOPIDOGREL 75 MG TAB PO SCH (09:00)
[2021-02-16] MEDS ORDERED: clonazePAM 0.5 MG TAB PO SCH (09:00)
--- NOTE | 2021-02-16 09:28 | REP ---
INDICATION: Resp Failure. COMPARISON: Comparison chest x-ray February 15, 2021. TECHNIQUE: Portable upright AP chest radiograph. FINDINGS: The patient is rotated slightly to the left. EKG electrodes are seen along with oxygen delivery tubing. Some vascular congestion persists. No pleural Ree pleural effusion is apparent. No new infiltrate. Cardiomediastinal silhouette is unchanged. IMPRESSION: No new infiltrate. <Electronically signed by Matheus Fontana > 02/16/21 0972
--- NOTE | 2021-02-16 09:50 | IPNPDOC ---
Subjective Date Seen The patient was seen on 02/16/21. Subjective Chief Complaint/HPI Patient seen and examined at bedside. Patient was extubated yesterday around noon. She did well throughout the day tolerating nasal cannula. Around 8 PM she started to have some more labored breathing and she was placed on BiPAP 02/19 which she did well on. Around 2 AM she had an episode of agitation which did not respond to a one-time dose of Klonopin, she was placed on Precedex drip. This morning when I saw her she was calm and not in distress. Precedex was running at 0.2. She says that she has some shortness of breath but denies any chest pain, fever, chills. Objective Physical Examination General Exam: Positive: Alert, Cooperative, No Acute Distress, Other Eye Exam: Positive: PERRLA ENT Exam: Positive: Atraumatic, Mucous membr. moist/pink Neck Exam: Positive: Supple Chest Exam: Positive: Normal air movement (Faint expiratory wheeze bilateral) Heart Exam: Positive: Rate Normal (Systolic ejection murmur), Regular Rhythm Telemetry: Positive: No significant arrhythmia Abdomen Exam: Positive: Normal bowel sounds (Nontender nondistended) Female Exam: Positive: Nl Ext Genitalia (Bateman in place) Extremity Exam: Positive: Normal pulses; Negative: Clubbing, Cyanosis, Edema Skin Exam: Positive: Nl turgor and temperature; Negative: Rash, Breakdown Neuro Exam: Positive: Normal Speech, Other Psych Exam: Positive: Mental status NL, Oriented x 3 RAD Interpretation STUDY: CXR (Chest x-ray from this morning shows mild bilateral increased interstitial markings, my read) Assessment /Plan Assessment IMPRESSION: The most critical problems requiring my immediate presence at bedside are: 1. Acute respiratory failure requiring mechanical ventilatory, extubated 02/15/21, still requiring BPAP on and off, tolerating nasal canula oxygen 2. Acute decompensated CHF with severe/critical aortic stenosis 3. NSTEMI 4. Diabetes mellitus with DKA, resolved 5. COPD by history with both tobacco use as well as nicotine-containing vaping history 6. Community-acquired pneumonia / Haemophilus in the sputum s/p treatment 7. Intermittent Agitation/anxiety possible withdrawal PLAN: [employer]ACKLER: Titrate off Precedex, start Klonopin 0.5 mg every 12 hours. Start morphine 1 mg every 6 hours as needed PULM: HOB 30 degrees. Maintain Sp02 94-98%. Titrate off oxygen as tolerated. Use BiPAP 10/5 as needed. Keep Solu-Medrol 60 mg every 12 hours as there is still faint bilateral expiratory wheeze and continue bronchodilators [id number]. CARDIO: Maintain MAPs 60-65. Continue aspirin 325, continue Lipitor, Plavix 75 mg daily, Lovenox 100 mg every 12, cardio is following. GI: Bowel regimen. senna and lactulose, advance diet as tolerated. RENAL: DC Bateman catheter for trial of void ID: Complete course of Zosyn today. ENDO: Monitor FS per routine. Goal range 140-180. Insulin NPH with sliding scale coverage HEME: DVT prophylaxis. LINES/CATHETERS: Peripheral IVs, DC Bateman DVT/GI PPX CODE STATUS: Full code. DISPOSITION: Keep in medical ICU for now, patient is currently accepted to several facilities for interventional cardiology and cardiac surgery services however no beds are available. Patient can be transferred to a non-icu bed A total of 55 minutes of critical care time was spent at the bedside, not including procedures. Plan/VTE VTE Prophylaxis Ordered?: Yes VS, I&O, [facility] Vital Signs/I&O Vital Signs Date Time Temp Pulse Resp B/P (MAP) Pulse Ox O2 Delivery O2 Flow Rate FiO2 02/16/21 08:00 30 02/16/21 08:00 97.6 82 26 126/80 (97) 95 NIPPV (BIPAP/CPAP) 02/15/21 19:36 2.0 I&O- Last 24 Hours up to 6 AM 02/16/21 06:00 Intake Total 1191.4 ml Output Total 2500 ml Balance -1308.6 ml Laboratory Data 24H LABS Laboratory Tests 2 02/15/21 09:39: Bedside Glucose (Misc Panel) 305H 02/15/21 10:54: Bedside Glucose (Misc Panel) 293H 02/15/21 17:00: Bedside Glucose (Misc Panel) 303H 02/15/21 19:20: Blood Gas Bicarbonate Standard 26.3H, Arterial Blood pH 7.412, Arterial Blood Partial Pressure CO2 43.3, Arterial Blood Partial Pressure O2 78.1, Arterial Blood Total CO2 28.3, Arterial Blood HCO3 27.0H, Arterial Blood Base Excess 2.1H, Arterial Blood Oxygen Saturation 94.8L 02/15/21 20:03: Troponin I 9.43#*H 02/15/21 22:04: Bedside Glucose (Misc Panel) 249H 02/16/21 05:05: Troponin I 8.22*H, Nucleated Red Blood Cells % (auto) 0.0, Anion Gap 3L, Glomerular Filtration Rate > 60.0, Calcium Level 8.7L 02/16/21 06:15: Blood Gas Bicarbonate Standard 26.6H, Arterial Blood pH 7.422, Arterial Blood Partial Pressure CO2 42.6, Arterial Blood Partial Pressure O2 93.4, Arterial Blood Total CO2 28.4, Arterial Blood HCO3 27.1H, Arterial Blood Base Excess 2.4H, Arterial Blood Oxygen Saturation 96.9 02/16/21 08:13: Bedside Glucose (Misc Panel) 307H CBC/BMP Laboratory Tests 02/16/21 05:05 Microbiology Microbiology 02/09/21 Gram Stain - Final, Complete 02/09/21 Sputum Culture - Final, Complete Haemophilus Parainfluenzae 02/09/21 Blood Culture - Final, Complete NO GROWTH AFTER 5 DAYS 02/09/21 Respiratory Virus Panel (PCR) (MARKO) - Final, Complete 02/09/21 Blood Culture - Final, Complete NO GROWTH AFTER 5 DAYS BONITA HOWELL MD Feb 16, 2021 09:50
--- NOTE | 2021-02-16 10:56 | ECGEPIP ---
[facility] Test Date: 2021-02-14 Pat Name: JOSHUA BLANCAS Department: Room: [place] [address] Gender: Female Nude Model: LANG : 1955 Requested By: Romel Pathak Order Number: [id number] Reading MD: James Oneill Measurements Intervals [place] Rate: 119 P: 69 MI: 130 QRS: 48 QRSD: 86 T: 138 QT: 300 QTc: 422 Interpretive Statements Sinus tachycardia ST & T wave abnormality, consider lateral ischemia Increased heart rate and more pronounced repolarization abnormalities compared w with 02/12/2021. Electronically Signed on 02-16-2021 10:55:43 EDT by James Oneill
--- NOTE | 2021-02-16 11:01 | ECGEPIP ---
[facility] Test Date: 2021-02-15 Pat Name: JOSHUA BLANCAS Department: Room: [place] [address] Gender: Female Grouter Helper: LEILANI : 1955 Requested By: Bri Blum Order Number: [id number] Reading MD: James Oneill Measurements Intervals [place] Rate: 81 P: 60 AK: 134 QRS: 34 QRSD: 86 T: 100 QT: 362 QTc: 420 Interpretive Statements Normal sinus rhythm Nonspecific ST-T abnormality. Abnormal QRS-T angle, consider primary T wave abnormality Decreased heart rate and resolution of ST segment depression compared with 02/14/2021. Electronically Signed on 02-16-2021 11:01:35 EDT by James Oneill
--- NOTE | 2021-02-16 11:09 | ECGEPIP ---
[facility] Test Date: 2021-02-15 Pat Name: JOSHUA BLANCAS Department: Room: [place] [address] Gender: Female Rotary Drier Operator: SANDEE : 1955 Requested By: BONITA Kapoor Order Number: [id number] Reading MD: James Oneill Measurements Intervals [place] Rate: 100 P: 60 WV: 134 QRS: 35 QRSD: 82 T: 89 QT: 322 QTc: 415 Interpretive Statements Normal sinus rhythm Nonspecific ST and T wave abnormality Increased heart rate compared with 02/15/2021 at 9:04 AM. Electronically Signed on 02-16-2021 11:08:32 EDT by James Oneill
--- NOTE | 2021-02-16 16:57 | DS.PDOC ---
Discharge Summary General Date of Admission Feb 09, 2021 at 09:08 Date of Discharge February 16 2021 Attending Physician: BONITA HOWELL MD Discharge Summary This is a 65-year-old female with a past medical history of asthma/COPD, hypertension, diabetes, CHF/aortic stenosis who initially presented to the hospital on February 09, 2021 for shortness of breath. On arrival in the ER she was in respiratory distress she was immediately placed on noninvasive ventilation which she did not tolerate and was thus intubated. Her admitting diagnoses were the following: Acute hypoxic respiratory failure, DKA, acute decompensated CHF, severe/critical aortic stenosis, NSTEMI, community-acquired pneumonia, COPD exacerbation. During the first week of her hospitalization her DKA resolved, and she had improvement in her respiratory status. She grew Haemophilus and her sputum culture. She is status post 7 days of Zosyn. She was treated for COPD exacerbation and is currently on tapering dose of steroids. She was started on aspirin, Plavix, Lovenox therapeutic and metoprolol for her NSTEMI. Her echo revealed markedly calcified aortic valve with critical aortic stenosis and peak velocity across aortic valve of 5.1 m/s. She was intubated for 6 days. She was extubated on February 15. Since extubation she has tolerated 2 to 3 L of oxygen via nasal cannula. She has needed to use BiPAP 10/5 nightly and as needed for dyspnea. She has intermittent anxiety/agitation which may be from benzodiazepine withdrawal, she is currently on Klonopin pin twice daily. The purpose of her being transferred is for interventional cardiology and/or cardiac surgery services for her severe symptomatic aortic stenosis with associated cardiac ischemia. Vital Signs/I&Os Vital Signs Date Time Temp Pulse Resp B/P (MAP) Pulse Ox O2 Delivery O2 Flow Rate FiO2 02/16/21 15:35 20 02/16/21 12:00 3.0 02/16/21 12:00 96.7 78 132/77 (99) 97 Nasal Cannula 02/16/21 08:00 30 I&O- Last 24 Hours up to 6 AM 02/16/21 06:00 Intake Total 1191.4 ml Output Total 2500 ml Balance -1308.6 ml Laboratory Data Labs 24H Laboratory Tests 2 02/15/21 17:00: Bedside Glucose (Misc Panel) 303H 02/15/21 19:20: Blood Gas Bicarbonate Standard 26.3H, Arterial Blood pH 7.412, Arterial Blood Partial Pressure CO2 43.3, Arterial Blood Partial Pressure O2 78.1, Arterial Blood Total CO2 28.3, Arterial Blood HCO3 27.0H, Arterial Blood Base Excess 2.1H, Arterial Blood Oxygen Saturation 94.8L 02/15/21 20:03: Troponin I 9.43#*H 02/15/21 22:04: Bedside Glucose (Misc Panel) 249H 02/16/21 05:05: Nucleated Red Blood Cells % (auto) 0.0, Anion Gap 3L, Glomerular Filtration Rate > 60.0, Calcium Level 8.7L, Troponin I 8.22*H 02/16/21 06:15: Blood Gas Bicarbonate Standard 26.6H, Arterial Blood pH 7.422, Arterial Blood Partial Pressure CO2 42.6, Arterial Blood Partial Pressure O2 93.4, Arterial Blood Total CO2 28.4, Arterial Blood HCO3 27.1H, Arterial Blood Base Excess 2.4H, Arterial Blood Oxygen Saturation 96.9 02/16/21 08:13: Bedside Glucose (Misc Panel) 307H 02/16/21 11:24: Bedside Glucose (Misc Panel) 221H CBC/BMP Laboratory Tests 02/16/21 05:05 FSBS Laboratory Tests Test 02/15/21 17:00 02/15/21 22:04 02/16/21 08:13 02/16/21 11:24 Range/Units Bedside Glucose (Misc Panel) 303 249 307 221 80-115 MG/DL Microbiology Microbiology 02/09/21 Gram Stain - Final, Complete 02/09/21 Sputum Culture - Final, Complete Haemophilus Parainfluenzae 02/09/21 Blood Culture - Final, Complete NO GROWTH AFTER 5 DAYS 02/09/21 Respiratory Virus Panel (PCR) (MARKO) - Final, Complete 02/09/21 Blood Culture - Final, Complete NO GROWTH AFTER 5 DAYS Discharge Medications Scheduled Bimatoprost (Lumigan) 50 Drop/2.5 Ml Micheline, 1 DROP OU DAILY, (Reported) Lisinopril (Lisinopril) 20 Mg Tab, 20 MG PO DAILY, (Reported) Sitagliptin Phos/Metformin HCl (Janumet Xr 50-1,000 mg Tablet) 1 Each Tbmp.24hr, 1 TAB PO BID, (Reported) Miscellaneous Medications [med rec comment] , (Reported) unable to verify with pt. used external med history Allergies Coded Allergies: Sulfa (Sulfonamide Antibiotics) (Verified Allergy, Intermediate, HIVES, 11/17/19) BONITA HOWELL MD Feb 16, 2021 16:56
--- NOTE | 2021-02-18 11:27 | IPN ---
PROGRESS NOTE DATE: 02/15/2021 SUBJECTIVE: Ms. Tamiko Poole was seen yesterday in the early evening hours. She was in bed with mild shortness of breath and mildly tachycardic. There was no chest pain or palpitations. There was no orthopnea. Earlier in the day, she was extubated without any problems. She was initially seen last weekend when she was admitted with respiratory failure and DKA. She had an echocardiogram done that revealed severe/critical aortic stenosis with normal global left ventricular systolic function. She has minimally abnormal elevation of serum troponin that was probably related to her underlying aortic stenosis. We are trying to transfer her for further cardiac management such as cardiac catheterization to no avail. OBJECTIVE: GENERAL: When I saw her the patient was alert and awake but short of breath. VITAL SIGNS: Blood pressure 137/69, pulse 109, respirations 30, and maximum temperature was 100 degrees Fahrenheit, oxygen saturation 93% on 2 liters nasal cannula. She had positive fluid balance of 688.5 mL for 02/14/2021. HEENT: Head atraumatic. NECK: Supple with extended jugular. LUNGS: Revealed no wheezing but bilateral crackles and upper airway rhonchi. HEART: Revealed irregular heart sounds, tachycardic. Systolic murmur consistent with severe aortic stenosis noted with radiation to the neck. ABDOMEN: Soft. EXTREMITIES: Lower leg edema. NEUROLOGIC: Not done. LABS: CBC revealed WBC 18.3, hemoglobin 9.2, hematocrit 30.6 and platelets 222,000. BMP reveals sodium 141, potassium 4.4, chloride 107, BUN 27, creatinine 0.86, GFR more than 60, fasting glucose 329. Troponin yesterday 02/14/2021 was 0.25. Telemetry revealed sinus tachycardia. ASSESSMENT/PLAN: Ms. Tamiko Poole seems to be developing heart failure when I saw her and this was discussed with her nurse and she was given a 20 mg IV push of IV Lasix. She has passed a significant amount of urine according to the nurse but it seems that after I have seen and left the hospital, I was called by Dr. Irwin who informed me that she bumped up her serum troponin up to 9.4. She was not having any chest pain. She was started on small dose of Metoprolol Tartrate and loaded with Plavix. She also was started on Lovenox. I have called [facility] but there was no bed. Case was discussed with Dr. Irwin and he said he will keep on trying. Prognosis is guarded, she needs to be transferred. She now is diagnosed with NSTEMI and she has severe/critical underlying aortic stenosis. KIANNA
--- NOTE | 2021-02-18 11:27 | IPN ---
PROGRESS NOTE DATE: 02/15/2021 Ms. Tamiko Poole was seen yesterday in the early evening hours, she was in supine in bed with mild shortness of breath and mildly tachycardic. There is no report of chest pain or palpitations. There was no orthopnea. Earlier in the day, she was extubated without any problems. She was initially seen last weekend when she was admitted with respiratory failure and diabetic ketoacidosis (DKA). She had an echocardiogram done that revealed severe/critical aortic stenosis with a normal global left ventricular systolic function. She has minimally abnormal elevation of her serum troponin that was probably related to her underlying aortic stenosis. We have been trying to transfer her for further cardiac management such as a cardiac catheterization to no avail. On physical examination when I saw her, patient was alert and awake, but short of breath. Her vital signs at that time revealed a blood pressure of 137/69 with a pulse of 109, respirations 30, and her maximum temperature was 100 degrees Fahrenheit, with an oxygen saturation of 93% on 2 liters nasal cannula. She had a positive fluid balance of 688.5 mL for 02/14/2021. Examination of the head: Atraumatic. Neck is supple with extended jugular. The lungs revealed no wheezing but bilateral crackles and upper airway rhonchi. The heart examination revealed irregular heart sounds, tachycardic. Systolic murmur consistent with severe aortic stenosis noted with radiation to the neck. Abdomen is soft. The extremities reveal trace lower leg edema. Neurologic examination was not done. LABORATORIES: CBC revealed a WBC of 18.3, hemoglobin 9.2, hematocrit 30.6, and platelets 222,000. BMP revealed a sodium of 141, potassium 4.4, chloride 107, CO2 26, BUN 27, creatinine 0.86, GFR more than 60, fasting glucose 329. Serum troponin yesterday, 02/14/2021, was 0.25. Telemetry revealed sinus tachycardia. Ms. Tamiko Poole seems to be developing heart failure when I saw her and case was discussed with her nurse and she was given a mg IV push of IV Lasix. She has passed a significant amount of urine according to the nurse, but it seems that after I have seen her and left the hospital, I was called by Dr. Irwin who informed me that she bumped up her serum troponin up to 9.4. She was not having any chest pain. She was started on a small dose of metoprolol tartrate and loaded with Plavix. She was also started on Lovenox. I have called [facility] but there was no bed. Case was discussed with Dr. Irwin and he stated he will keep on trying. Her prognosis is guarded, she needs to be transferred, she now is diagnosed with a [id number] myocardial infarction (NSTEMI) and she has severe/critical underlying aortic stenosis. KIANNA
== END 2021-02-16 20:09 | disposition short-term general hospital (02) | DRG 280 ==
LOC: M ED 06:32 → M ED INP 09:08 → ENRESERV 09:42 → M ICU 10:13
PROVIDERS: ADMIT Internal Medicine Pulmonary Disease; ATTEND Internal Medicine Pulmonary Disease
PROC: 5A1955Z Respiratory Ventilation, Greater than 96 Consecutive Hours (ICD-10-PCS; principal; 2021-02-09)
DX: I21.A1 Myocardial infarction type 2 (principal); J96.01 Acute respiratory failure with hypoxia; J12.2 Parainfluenza virus pneumonia; J96.02 Acute respiratory failure with hypercapnia; E11.10 Type 2 diabetes mellitus with ketoacidosis without coma; E87.2 Acidosis; Z68.41 Body mass index [BMI] 40.0-44.9, adult; J44.1 Chronic obstructive pulmonary disease with (acute) exacerbation; E66.01 Morbid (severe) obesity due to excess calories; I11.0 Hypertensive heart disease with heart failure; I50.9 Heart failure, unspecified; I35.0 Nonrheumatic aortic (valve) stenosis; Z88.2 Allergy status to sulfonamides; Z79.899 Other long term (current) drug therapy

== ENCOUNTER → 2021-04-03 | Outpatient (CLI) | payer MEDICARE, BC, OTHER ==
[~2021-04-03] MED LIST changes: +med rec comment
[2021-04-03 15:48] LABS: BLOOD UREA NITROGEN 7 MG/DL (7-18); CALCIUM LEVEL 8.9 MG/DL (8.8-10.2); CARBON DIOXIDE LEVEL 29 MEQ/L (21-32); CHLORIDE LEVEL 107 MEQ/L (98-107); CREATININE FOR GFR 0.59 MG/DL (0.55-1.30); GLOMERULAR FILTRATION RATE > 60.0 (>45); GLUCOSE, FASTING 135 MG/DL (70-100); POTASSIUM SERUM 4.2 MEQ/L (3.5-5.1); SODIUM LEVEL 141 MEQ/L (136-145)
== END ==
LOC: M LAB 14:59
PROVIDERS: ATTEND Internal Medicine Endocrinology, Diabetes & Metabolism
DX: E11.65 Type 2 diabetes mellitus with hyperglycemia (principal)

== ENCOUNTER → 2022-05-16 | Outpatient (REF) | payer MEDICARE, OTHER ==
[2022-05-16 18:20] LABS: MAU/CREAT RATIO 80.5 MCG/MG (0.0-30.0)
== END ==
LOC: M LAB REF 16:43
PROVIDERS: ATTEND Internal Medicine Endocrinology, Diabetes & Metabolism
DX: E11.65 Type 2 diabetes mellitus with hyperglycemia (principal)

== ENCOUNTER → 2022-06-19 | Outpatient (REF) | payer MEDICARE, OTHER ==
[2022-06-19 17:33] LABS: BASO # 0.1 10^3/uL (0.0-0.2); BASO % 0.5 % (0.0-1.0); EOS # 0.5 10^3/uL (0.0-0.5); HEMATOCRIT 37.6 % (36.0-47.0); HEMOGLOBIN 11.7 g/dl (12.0-15.5); LYMPH # 1.8 10^3/uL (1.5-5.0); LYMPH % 15.2 % (24.0-44.0); MEAN CORPUSCULAR HEMOGLOBIN 27.5 pg (27.0-33.0); MEAN CORPUSCULAR HGB CONC 31.1 g/dl (32.0-36.5); MEAN CORPUSCULAR VOLUME 88.3 fl (80.0-96.0); MONO % 8.3 % (2.0-8.0); NEUTROPHILS # 8.3 10^3/uL (1.5-8.5); NEUTROPHILS % 71.3 % (36.0-66.0); PLATELET COUNT, AUTOMATED 294 10^3/uL (150-450); RED BLOOD COUNT 4.26 10^6/uL (4.00-5.40); WHITE BLOOD COUNT 11.7 10^3/uL (4.0-10.0)
[2022-06-19 17:52] LABS: IRON (FE) 29 UG/DL (50-170)
[2022-06-19 17:53] LABS: ALBUMIN 3.2 G/DL (3.2-5.2); ALKALINE PHOSPHATASE 111 U/L (46-116); ALT/SGPT 19 U/L (7.0-40); AST/SGOT 17 U/L (<34); BILIRUBIN,TOTAL 0.4 MG/DL (0.3-1.2); BLOOD UREA NITROGEN 16 MG/DL (9-23); CALCIUM LEVEL 9.3 MG/DL (8.3-10.6); CARBON DIOXIDE LEVEL 26 MMOL/L (20-31); CHLORIDE LEVEL 99 MMOL/L (98-107); CREATININE FOR GFR 0.79 MG/DL (0.55-1.30); GLOMERULAR FILTRATION RATE > 60.0 (>45); GLUCOSE, FASTING 206 MG/DL (74-106); POTASSIUM SERUM 4.8 MMOL/L (3.5-5.1); SODIUM LEVEL 135 MMOL/L (136-145)
== END ==
LOC: M LAB REF 16:39
PROVIDERS: ATTEND Family Medicine Addiction Medicine
DX: R06.09 Other forms of dyspnea (principal)

== ENCOUNTER → 2022-08-05 | Outpatient (CLI) | payer MEDICARE, BC, OTHER | LOC: M CARPUL 12:09 | PROVIDERS: ATTEND Internal Medicine Pulmonary Disease | DX: Z87.891 Personal history of nicotine dependence (principal) ==

== ENCOUNTER → 2022-09-12 | Outpatient (REF) | payer MEDICARE, BC, OTHER ==
[2022-09-12 18:01] LABS: CREATININE, URINE 35.7 MG/DL
== END ==
LOC: M LAB REF 17:12
PROVIDERS: ATTEND Internal Medicine Endocrinology, Diabetes & Metabolism
DX: E11.65 Type 2 diabetes mellitus with hyperglycemia (principal)

== ENCOUNTER → 2022-09-25 | Outpatient (CLI) | payer MEDICARE, BC, OTHER ==
[2022-09-25 10:50] LABS: ABG BASE EXCESS -1.1 (-2.0-2.0); ABG HCO3 24.5 MMOL/L (22.0-26.0); ABG O2 SATURATION 96.2 % (95.0-99.0); ABG PARTIAL PRESSURE O2 82.8 mmHg (75.0-100.0); ABG STANDARD HCO3 23.5 MMOL/L. (22.0-26.0); ABG TOTAL CO2 25.8 MMOL/L (23.0-31.0); ABG pH (ARTERIAL) 7.363 UNITS (7.350-7.450)
== END ==
LOC: M LAB 09:57
PROVIDERS: ATTEND Internal Medicine Pulmonary Disease
DX: R09.02 Hypoxemia (principal)

== ENCOUNTER → 2022-09-25 | Outpatient (CLI) | payer MEDICARE, BC, OTHER ==
[2022-09-25 13:19] LABS: FREE T4 0.99 NG/DL (0.89-1.76)
[2022-09-25 13:20] LABS: THYROID STIMULATING HORMONE 1.229 uIU/ML (0.55-4.78)
[2022-09-25 13:21] LABS: FERRITIN 17.2 NG/ML (7.3-270.7); TOTAL 25(OH) VITAMIN D 51.6 NG/ML (20.0-100.0)
[2022-09-25 13:45] LABS: BASO # 0.1 10^3/uL (0.0-0.2); BASO % 0.6 % (0.0-1.0); EOS # 0.4 10^3/uL (0.0-0.5); EOS % 4.3 % (0.0-3.0); HEMATOCRIT 38.6 % (36.0-47.0); HEMOGLOBIN 11.7 g/dl (12.0-15.5); LYMPH # 1.7 10^3/uL (1.5-5.0); LYMPH % 17.3 % (24.0-44.0); MEAN CORPUSCULAR HEMOGLOBIN 27.6 pg (27.0-33.0); MEAN CORPUSCULAR HGB CONC 30.3 g/dl (32.0-36.5); MONO # 0.6 10^3/uL (0.0-0.8); MONO % 6.1 % (2.0-8.0); NEUTROPHILS % 71.2 % (36.0-66.0); PLATELET COUNT, AUTOMATED 268 10^3/uL (150-450); RED BLOOD COUNT 4.24 10^6/uL (4.00-5.40); WHITE BLOOD COUNT 9.8 10^3/uL (4.0-10.0)
[2022-09-27 14:08] LABS: ANTINUCLEAR ANTIBODIES DIRECT Negative (Negative)
== END ==
LOC: M LAB 10:01
PROVIDERS: ATTEND Nurse Practitioner Family
DX: L65.9 Nonscarring hair loss, unspecified (principal); Z79.899 Other long term (current) drug therapy; R09.02 Hypoxemia

== ENCOUNTER → 2022-10-20 | Outpatient (CLI) | payer MEDICARE, BC, OTHER | LOC: M SLEEP 10:59 | PROVIDERS: ATTEND Internal Medicine Pulmonary Disease | DX: G47.33 Obstructive sleep apnea (adult) (pediatric) (principal) ==

== ENCOUNTER → 2022-12-03 | Outpatient (CLI) | payer MEDICARE, BC, OTHER ==
[~2022-12-03] MED LIST changes: -K-TA10TA PO; +POTA-164 PO
== END ==
LOC: M RAD 11:42
DX: R91.8 Other nonspecific abnormal finding of lung field (principal)

== ENCOUNTER → 2023-02-18 | Outpatient (CLI) | payer MEDICARE, BC, OTHER ==
[2023-02-18 07:18] LABS: ALBUMIN 3.5 G/DL (3.2-5.2); ALKALINE PHOSPHATASE 77 U/L (46-116); ALT/SGPT 20 U/L (7.0-40); AST/SGOT 10 U/L (<34); BILIRUBIN,TOTAL 0.3 MG/DL (0.3-1.2); BLOOD UREA NITROGEN 37 MG/DL (9-23); CALCIUM LEVEL 8.9 MG/DL (8.3-10.6); CARBON DIOXIDE LEVEL 25 MMOL/L (20-31); CHLORIDE LEVEL 110 MMOL/L (98-107); CHOLESTEROL LEVEL 181 MG/DL (<200); CHOLESTEROL RISK RATIO 3.01 (<5); CREATININE FOR GFR 0.88 MG/DL (0.55-1.30); GLOMERULAR FILTRATION RATE > 60.0 (>45); GLUCOSE, FASTING 188 MG/DL (74-106); LDL CHOLESTEROL 68.6 MG/DL (<100); POTASSIUM SERUM 4.6 MMOL/L (3.5-5.1); SODIUM LEVEL 141 MMOL/L (136-145); TOTAL PROTEIN 6.3 G/DL (5.7-8.2); TRIGLYCERIDES LEVEL 262 MG/DL (<150)
== END ==
LOC: M LAB 06:13
PROVIDERS: ATTEND Nurse Practitioner Family
DX: E11.65 Type 2 diabetes mellitus with hyperglycemia (principal)

== ENCOUNTER → 2023-06-16 | Outpatient (CLI) | payer MEDICARE, BC, OTHER | LOC: M WHC 10:34 | PROVIDERS: ATTEND Family Medicine Addiction Medicine | DX: Z12.31 Encounter for screening mammogram for malignant neoplasm of breast (principal) ==

== ENCOUNTER → 2023-07-31 | Outpatient (CLI) | payer MEDICARE, BC | LOC: M RAD 12:49 | PROVIDERS: ATTEND Internal Medicine Pulmonary Disease | DX: Z12.2 Encounter for screening for malignant neoplasm of respiratory organs (principal); Z87.891 Personal history of nicotine dependence ==

== ENCOUNTER → 2023-08-23 | Outpatient (CLI) | payer MEDICARE, BC ==
[2023-08-23 11:05] LABS: BLOOD UREA NITROGEN 26 MG/DL (9-23); CALCIUM LEVEL 9.2 MG/DL (8.3-10.6); CARBON DIOXIDE LEVEL 27 MMOL/L (20-31); CHLORIDE LEVEL 104 MMOL/L (98-107); CREATININE FOR GFR 0.87 MG/DL (0.55-1.30); GLOMERULAR FILTRATION RATE > 60.0 (>45); GLUCOSE, FASTING 223 MG/DL (74-106); POTASSIUM SERUM 4.6 MMOL/L (3.5-5.1); SODIUM LEVEL 140 MMOL/L (136-145)
== END ==
LOC: M LAB 10:09
PROVIDERS: ATTEND Internal Medicine Cardiovascular Disease
DX: Z79.899 Other long term (current) drug therapy (principal)

== ENCOUNTER → 2023-09-30 | Outpatient (CLI) | payer MEDICARE, BC ==
[2023-09-30 18:07] LABS: BASO # 0.1 10^3/uL (0.0-0.2); BASO % 0.6 % (0.0-1.0); EOS # 0.5 10^3/uL (0.0-0.5); EOS % 4.1 % (0.0-3.0); HEMATOCRIT 43.4 % (36.0-47.0); HEMOGLOBIN 13.9 g/dl (12.0-15.5); LYMPH # 2.2 10^3/uL (1.5-5.0); LYMPH % 20.3 % (24.0-44.0); MEAN CORPUSCULAR HEMOGLOBIN 28.1 pg (27.0-33.0); MEAN CORPUSCULAR VOLUME 87.7 fl (80.0-96.0); MONO # 0.7 10^3/uL (0.0-0.8); MONO % 6.4 % (2.0-8.0); NEUTROPHILS # 7.5 10^3/uL (1.5-8.5); NEUTROPHILS % 68.1 % (36.0-66.0); PLATELET COUNT, AUTOMATED 241 10^3/uL (150-450); RED BLOOD COUNT 4.95 10^6/uL (4.00-5.40)
[2023-09-30 18:19] LABS: HEMOGLOBIN A1c 8.1 % (4.0-6.0)
[2023-09-30 18:31] LABS: ALKALINE PHOSPHATASE 90 U/L (46-116); ALT/SGPT 30 U/L (7.0-40); AST/SGOT 19 U/L (<34); BILIRUBIN,TOTAL 0.5 MG/DL (0.3-1.2); BLOOD UREA NITROGEN 22 MG/DL (9-23); CARBON DIOXIDE LEVEL 27 MMOL/L (20-31); CHLORIDE LEVEL 101 MMOL/L (98-107); CREATININE FOR GFR 0.77 MG/DL (0.55-1.30); GLOMERULAR FILTRATION RATE > 60.0 (>45); GLUCOSE, FASTING 166 MG/DL (74-106); POTASSIUM SERUM 4.4 MMOL/L (3.5-5.1); SODIUM LEVEL 139 MMOL/L (136-145); TOTAL PROTEIN 6.9 G/DL (5.7-8.2)
== END ==
LOC: M LAB 17:27
PROVIDERS: ATTEND Registered Nurse
DX: Z01.818 Encounter for other preprocedural examination (principal); E11.69 Type 2 diabetes mellitus with other specified complication

== ENCOUNTER → 2023-12-14 | Outpatient (CLI) | payer MEDICARE, BC ==
[~2023-12-14] MED LIST changes: +ALBU8.5H; +ASPI81TA26 PO; +BREO1INH; +D31000CA4 PO; +FARX1TAB5; +FURO20TA2; +ISOVUE-370 76% 100ML VIAL As Ordered ONE; +MAGN400T33; +METF-838; +METO50TA7; +OMEG10002 PO; +ROSU10TA61; +SEMA1PEN2; +ULTR5TAB PO; +VALS1TAB67; +VITA100018 PO; +blackseed oil PO; +oxygen NARES
== END ==
LOC: M RAD 16:09
PROVIDERS: ATTEND Internal Medicine Medical Oncology
DX: R22.0 Localized swelling, mass and lump, head (principal)
CPT/HCPCS: 70491; Q9967

== ENCOUNTER → 2024-08-08 | Outpatient (CLI) | payer MEDICARE, BC ==
[~2024-08-08] MED LIST changes: -ISOVUE-370 76% 100ML VIAL As Ordered ONE
[2024-08-08 07:52] LABS: ALBUMIN 3.8 G/DL (3.2-5.2); ALKALINE PHOSPHATASE 75 U/L (35-104); ALT/SGPT 23 U/L (7.0-40); AST/SGOT 12 U/L (<34); BILIRUBIN,TOTAL 0.4 MG/DL (0.3-1.2); BLOOD UREA NITROGEN 28 MG/DL (9-23); C REACTIVE PROTEIN QUANTITATIV 0.73 MG/DL (<1.0); CALCIUM LEVEL 9.9 MG/DL (8.3-10.6); CARBON DIOXIDE LEVEL 28 MMOL/L (20-31); CHLORIDE LEVEL 105 MMOL/L (98-107); CREATININE FOR GFR 0.89 MG/DL (0.55-1.30); GLOMERULAR FILTRATION RATE > 60.0 (>45); GLUCOSE, FASTING 151 MG/DL (74-106); POTASSIUM SERUM 4.7 MMOL/L (3.5-5.1); SODIUM LEVEL 141 MMOL/L (136-145); TOTAL PROTEIN 6.9 G/DL (5.7-8.2)
[2024-08-08 07:53] LABS: RHEUMATOID FACTOR QUANT < 3.5 IU/ML (<14)
[2024-08-08 07:54] LABS: FREE T4 1.05 NG/DL (0.89-1.76); THYROID STIMULATING HORMONE 2.311 uIU/ML (0.55-4.78)
[2024-08-08 08:05] LABS: HEPATITIS B SURFACE ANTIGEN NEGATIVE (NEGATIVE)
[2024-08-08 08:26] LABS: HEPATITIS C VIRUS ABY INDEX 0.03 INDEX (<0.8)
[2024-08-08 08:27] LABS: HEPATITIS B CORE ANTIBODY IGM NEGATIVE (NEGATIVE)
[2024-08-10 13:37] LABS: ANA SCREEN, IFA NEGATIVE (NEGATIVE)
== END ==
LOC: M LAB 06:30
PROVIDERS: ATTEND Registered Nurse
DX: Z01.89 Encounter for other specified special examinations (principal); R21 Rash and other nonspecific skin eruption; Z79.899 Other long term (current) drug therapy

== ENCOUNTER → 2024-08-11 | Outpatient (CLI) | payer MEDICARE, BC | LOC: M RAD 16:42 | PROVIDERS: ATTEND Internal Medicine Pulmonary Disease | DX: Z12.2 Encounter for screening for malignant neoplasm of respiratory organs (principal); Z87.891 Personal history of nicotine dependence ==